=== PATIENT | male | born 1955 | race American Indian/Alaskan Native ===

== ENCOUNTER 2022-02-01 11:53 | Inpatient (IN) | payer MEDICARE ==
[2022-02-01] MEDS ORDERED: DEXTROSE 50% IN WATER (25GM) 50 ML SYRINGE IV ONE ×2 (13:00→16:59)
--- NOTE | 2022-02-01 13:51 | Emergency Department Report ---
ED General Adult HPI - General Chief complaint: Weakness Stated complaint: MISSED DIALYSIS X 4 WEEKS Time Seen by Provider: 02/01/22 12:36 Source: patient, EMS Mode of arrival: Stretcher Limitations: No Limitations - History of Present Illness Initial comments: Patient is a 66-year-old male with history of chronic kidney disease on dialysis presenting to ED with complaint of generalized weakness. States he is missed his past 4 weeks of dialysis. States he is treated poorly there and grew tired of going. - Related Data Allergies Allergy/AdvReac Type Severity Reaction Status Date / Time No Known Allergies Allergy Verified 02/01/22 12:02 ED Review of Systems ROS: Stated complaint: MISSED DIALYSIS X 4 WEEKS Other details as noted in HPI Constitutional: weakness. denies: chills, fever Respiratory: denies: cough, shortness of breath, wheezing Cardiovascular: denies: chest pain, palpitations Gastrointestinal: denies: abdominal pain, nausea, diarrhea Genitourinary: denies: urgency, dysuria Musculoskeletal: denies: back pain, joint swelling, arthralgia Skin: denies: rash, lesions Neurological: denies: headache, weakness, paresthesias Psychiatric: denies: anxiety, depression ED Physical Exam - General Limitations: No Limitations General appearance: alert, in no apparent distress - Head Head exam: Present: atraumatic, normocephalic - Neck Neck exam: Present: normal inspection. Absent: tenderness - Respiratory Respiratory exam: Present: normal lung sounds bilaterally. Absent: respiratory distress - Cardiovascular Cardiovascular Exam: Present: regular rate, normal rhythm, normal heart sounds - GI/Abdominal GI/Abdominal exam: Present: soft. Absent: distended, tenderness - Rectal Rectal exam: Present: deferred - Neurological Exam Neurological exam: Present: alert, oriented X3 - Psychiatric Psychiatric exam: Present: normal affect, normal mood - Skin Skin exam: Present: warm, dry, intact, normal color ED Course Vital Signs 02/01/22 02/01/22 02/01/22 11:59 12:12 12:31 Temperature 98 F Pulse Rate 104 H 95 H Respiratory 18 17 Rate Blood Pressure 163/100 Blood Pressure 188/107 [Left] O2 Sat by Pulse 95 91 98 Oximetry 02/01/22 02/01/22 02/01/22 13:01 13:31 14:01 Temperature Pulse Rate 91 H 94 H 89 Respiratory 13 13 17 Rate Blood Pressure 157/93 157/93 150/91 Blood Pressure [Left] O2 Sat by Pulse 97 94 98 Oximetry ED Medical Decision Making - Lab Data Result diagrams: 02/01/22 15:00 02/01/22 15:00 - EKG Data -: EKG Interpreted by Me EKG shows normal: sinus rhythm, axis, intervals, ST-T waves - EKG Data Interpretation: other (Low voltage) - Medical Decision Making Patient presenting to ED with complaint of generalized weakness and missing 4 weeks of dialysis. Serum potassium is 6.7. Patient also anemic with hemoglobin of 6.1. Suspect this is likely the cause of patient's generalized weakness. 2 units of blood ordered. Patient also given calcium gluconate, Kayexalate, insulin and dextrose. I discussed case with Dr. Metzger who will consult for dialysis. Will admit to hospitalist. Critical care attestation.: If time is entered above; I have spent that time in minutes in the direct care of this critically ill patient, excluding procedure time. ED Disposition Clinical Impression: Missed dialysis, Hyperkalemia, Symptomatic anemia Disposition: ADMITTED INPATIENT Is pt being admited?: Yes Condition: Stable
[2022-02-01 15:30] LABS: Basophils # (Auto) 0.1 K/mm3 (0.0-0.1); Basophils % (Auto) 1.2 % (0.0-1.8); Eosinophils # (Auto) 0.3 K/mm3 (0.0-0.4); Eosinophils % (Auto) 4.5 % (0.0-4.3); Hemoglobin 6.1 gm/dl (11.8-15.2); Lymphocytes # (Auto) 0.7 K/mm3 (1.2-5.4); Lymphocytes % (Auto) 12.2 % (13.4-35.0); Mean Corpuscular HGB Conc 33 % (32-34); Mean Corpuscular Volume 87 fl (84-94); Monocytes # (Auto) 0.5 K/mm3 (0.0-0.8); Monocytes % (Auto) 8.2 % (0.0-7.3); Platelet Count 150 K/mm3 (140-440); Red Blood Count 2.12 M/mm3 (3.65-5.03); Red Cell Distribution Width 14.4 % (13.2-15.2)
[2022-02-01 15:38] LABS: Hematocrit 18.4 % (35.5-45.6)
[2022-02-01] MEDS ORDERED: SODIUM CHLORIDE 0.9% 500 ML 500 ML IV ONE (15:38)
[2022-02-01 16:03] LABS: Alanine Aminotransferase 10 units/L (7-56); Albumin 3.6 g/dL (3.9-5); Hemolysis Index 9
[2022-02-01 16:07] LABS: Bilirubin,Direct < 0.2 mg/dL (0-0.2)
[2022-02-01 16:42] LABS: BUN/Creatinine Ratio 5; Blood Urea Nitrogen 151 mg/dL (9-20)
[2022-02-01] MEDS ORDERED: SODIUM POLYSTYRENE 15 GM/60 ML ORAL LIQD PO ONE (16:58)
[2022-02-01] MEDS ORDERED: CALCIUM GLUCONATE 1,000 MG in SODIUM CHLORIDE 0.9% 100 ML IV ONE (16:59)
[2022-02-01] MEDS ORDERED: INSULIN REGULAR, HUMAN 100 UNITS/1 ML IV ONE (16:59)
--- NOTE | 2022-02-01 17:01 | History and Physical Report ---
History of Present Illness Chief complaint: I need dialysis History of present illness: 66 YO Male with ESRD on HD, HTN, Noncompliance, Vascular Dementia, Cerebral Atherosclerosis presents to ED for evaluation. Patient reports "I need dialysis". Patient states that over the past 3 weeks he has experienced generalized weakness, decreased exercise tolerance. Patient also acknowledges multiple falls and loss of consciousness today. Patient was found by a personal friend during a well check and found the patient to have generalized weakness. EMS was notified and upon arrival the patient was found to be in distress and subsequent transported to [facility] for further care and evaluation of the aforementioned symptoms. The patient was seen and evaluated in the emergency department. All lab and imaging studies reviewed. Patient found to have symptomatic anemia complicated by loss of consciousness, end-stage renal disease in need of urgent dialysis, fluid overload, metabolic acidosis, and hyperkalemia. Patient mated to medical floor due to increased risk of worsening symptoms as well as for medical stabilization. Nephrology team consulted in ED for urgent dialysis. Patient denies fever, chills, chest pain, palpitation, productive cough, skin rash, recent contact, known exposure to COVID-19. No prior admission for review. No medication listed at time of admission for reconciliation. Advanced care planning conducted in ED. - G Past History Past Medical History: ESRD, hypertension, other (See HPI) Past Surgical History: Other (Dialysis access) Social history: . denies: smoking, alcohol abuse Family history: hypertension Medications and Allergies Allergies Allergy/AdvReac Type Severity Reaction Status Date / Time No Known Allergies Allergy Verified 02/01/22 12:02 Active Meds: Active Medications Calcium Gluconate 1,000 mg/ (Sodium Chloride) 110 mls @ 660 mls/hr IV ONCE ONE Stop: 02/01/22 17:08 Review of Systems Constitutional: weakness, no weight loss, no weight gain, no fever Ears, nose, mouth and throat: no ear pain, no nose pain, no nasal congestion Cardiovascular: no chest pain, no palpitations, no rapid/irregular heart beat Respiratory: no cough, no cough with sputum, no hemoptysis Gastrointestinal: no abdominal pain, no vomiting, no diarrhea, no constipation Genitourinary Male: no hematuria, no flank pain, no discharge, no urinary frequency, no urinary hesitancy Rectal: no pain, no incontinence, no bleeding Musculoskeletal: no neck pain, no shooting arm pain, no arm numbness/tingling, no low back pain, no shooting leg pain Integumentary: no rash, no pruritis, no sores, no jaundice Neurological: syncope, no transient paralysis, no paralysis, no parathesias Psychiatric: no anxiety, no memory loss, no change in sleep habits Endocrine: no cold intolerance, no polyphagia, no excessive thirst, no polydipsia Hematologic/Lymphatic: no easy bruising, no easy bleeding, no lymphadenopathy Allergic/Immunologic: no urticaria, no wheezing, no anaphylaxis Exam - Constitutional Vitals: Temp Pulse Resp BP Pulse Ox 98 F 89 17 150/91 98 02/01/22 11:59 02/01/22 14:01 02/01/22 14:01 02/01/22 14:01 02/01/22 14:01 General appearance: Present: mild distress - EENT Eyes: Present: PERRL (Conjunctival pallor) ENT: hearing intact, clear oral mucosa, other - Neck Neck: Present: supple, normal ROM - Respiratory Respiratory effort: normal Respiratory: bilateral: diminished - Cardiovascular Heart Sounds: Present: S1 & S2. Absent: rub, click - Extremities Extremities: pulses symmetrical, No edema Peripheral Pulses: within normal limits - Abdominal General gastrointestinal: Present: soft, non-tender, non-distended, normal bowel sounds Male genitourinary: Present: normal - Integumentary Integumentary: Present: warm, dry, pale, decreased turgor - Musculoskeletal Musculoskeletal: generalized weakness - Psychiatric Psychiatric: appropriate mood/affect, intact judgment & insight - Neurologic Neurologic: CNII-XII intact, moves all extremities Results - Labs CBC & Chem 7: 02/01/22 15:00 02/01/22 15:00 Labs: Abnormal lab results 02/01/22 02/01/22 02/01/22 Range/Units 12:58 15:00 15:00 RBC 2.12 L (3.65-5.03) M/mm3 Hgb 6.1 L (11.8-15.2) gm/dl Hct 18.4 L* (35.5-45.6) % Lymph % (Auto) 12.2 L (13.4-35.0) % [place] % (Auto) 8.2 H (0.0-7.3) % Eos % (Auto) 4.5 H (0.0-4.3) % Lymph # (Auto) 0.7 L (1.2-5.4) K/mm3 Seg Neutrophils % 73.9 H (40.0-70.0) % Sodium 136 L (137-145) mmol/L Potassium 6.7 H* (3.6-5.0) mmol/L Chloride 95.5 L (98-107) mmol/L Carbon Dioxide 15 L (22-30) mmol/L BUN 151 H (9-20) mg/dL Creatinine 29.3 H (0.8-1.3) mg/dL Glucose 55 L (75-100) mg/dL POC Glucose 56 L (70-105) mg/dL Calcium 7.0 L (8.4-10.2) mg/dL Total Protein 6.1 L (6.3-8.2) g/dL Albumin 3.6 L (3.9-5) g/dL Assessment and Plan - Patient Problems (1) End stage renal disease Current Visit: Yes Status: Acute Plan to address problem: Urgent dialysis per renal team, strict I's/O, monitor urine output every shift, avoid nephrotoxic agents, afterload reduction, (2) Fluid overload Current Visit: Yes Status: Acute Qualifiers: Hypervolemia type: unspecified Qualified Code(s): E87.70 - Fluid overload, unspecified Plan to address problem: Supportive care, urgent dialysis. Monitor fluid balance. (3) Hyperkalemia Current Visit: Yes Status: Acute Plan to address problem: Kayexalate, calcium gluconate, urgent dialysis. (4) Symptomatic anemia Current Visit: Yes Status: Acute Plan to address problem: Packed red blood cell transfusion, CBC, repeat CBC in a.m. (5) Metabolic acidosis Current Visit: Yes Status: Acute Plan to address problem: BMP, repeat BMP in a.m., urgent dialysis. (6) Hypertension Current Visit: Yes Status: Acute Qualifiers: Hypertension type: primary hypertension Qualified Code(s): I10 - Essential (primary) hypertension Plan to address problem: Monitor blood pressure every shift, continue medical management. Blood pressure check as per nursing care protocol. (7) DVT prophylaxis Current Visit: Yes Status: Acute Plan to address problem: SCD to bilateral lower extremities while in bed (8) Advance care planning Current Visit: Yes Status: Acute Plan to address problem: Disease education conducted, care plan discussed, diagnoses discussed, prognosis discussed, patient is full code. Patient knowledges understanding and agreement with care plan, +30 minutes. (9) Preventative health care Current Visit: Yes Status: Acute Plan to address problem: Patient counseled regarding compliance with dialysis, renal diet, medication compliance. Patient also instructed to follow-up with primary care physician for all age and risk factor appropriate screening test. +30 minutes.
[2022-02-01] MEDS ORDERED: ONDANSETRON 4 MG/2 ML INJ IV PRN (17:02)
[2022-02-01] MEDS ORDERED: ALBUTEROL 2.5 MG/3 ML NEBU IH PRN (17:02)
[2022-02-01] MEDS ORDERED: ACETAMINOPHEN 325 MG TAB PO PRN (17:02)
[2022-02-01] MEDS ORDERED: oxyCODONE /ACETAMINOPHEN 5-325MG TAB PO PRN (17:02)
[2022-02-01] MEDS ORDERED: HYDROmorphone 0.5 MG/0.5 ML INJ IV PRN (17:02)
[2022-02-01] MEDS ORDERED: CALC GLUCONATE 1GM/NS 100 ML 1 GM/100 ML BAG IV SCH (18:00)
[2022-02-01] MEDS ORDERED: SODIUM CHLORIDE 0.9% 100 ML IV PRN ×2 (18:09→19:11)
[2022-02-01] MEDS ORDERED: EPOETIN ALFA-EPBX 20,000 UNIT/1 ML VIAL SUB-Q PRN (18:09)
[2022-02-01] MEDS ORDERED: HEPARIN 10,000 UNITS/10 ML VIAL IV PRN (18:09)
--- NOTE | 2022-02-01 18:15 | Event Note ---
Date: 02/01/22 Patient with missed HD. Labs noted. Stat HD ordered. Spoke with Nursing abattoir supervisor about this patient.
[2022-02-01 21:59] LABS: Hepatitis B Surface Antigen Non-Reactive (Negative); Hepatitis C Virus Antibody Non-Reactive (NonReactive)
[2022-02-02] MEDS ORDERED: SODIUM CHLORIDE 0.9% 250ML 250 ML IV ONE (00:54)
[2022-02-02] MEDS ORDERED: hydrALAZINE 20 MG/1 ML INJ IV PRN (02:11)
[2022-02-02 07:23] VITALS: BP 148/85
[2022-02-02] MEDS ORDERED: METOPROLOL TARTRATE 25 MG TAB PO NR (08:29)
--- NOTE | 2022-02-02 08:35 | Progress Note ---
Assessment and Plan Assessment and plan: (1) End stage renal disease Current Visit: Yes Status: Acute Plan to address problem: Urgent dialysis per renal team, strict I's/O, monitor urine output every shift, avoid nephrotoxic agents, afterload reduction, (2) Fluid overload Current Visit: Yes Status: Acute Qualifiers: Hypervolemia type: unspecified Qualified Code(s): E87.70 - Fluid overload, unspecified Plan to address problem: Supportive care, urgent dialysis. Monitor fluid balance. (3) Hyperkalemia Current Visit: Yes Status: Acute Plan to address problem: Kayexalate, calcium gluconate, urgent dialysis. (4) Symptomatic anemia Current Visit: Yes Status: Acute Plan to address problem: Packed red blood cell transfusion, CBC, repeat CBC in a.m. (5) Metabolic acidosis Current Visit: Yes Status: Acute Plan to address problem: BMP, repeat BMP in a.m., urgent dialysis. (6) Hypertension Current Visit: Yes Status: Acute Qualifiers: Hypertension type: primary hypertension Qualified Code(s): I10 - Essential (primary) hypertension Plan to address problem: Monitor blood pressure every shift, continue medical management. Blood pressure check as per nursing care protocol. --Medical noncompliance ; (7) DVT prophylaxis Current Visit: Yes Status: Acute Plan to address problem: SCD to bilateral lower extremities while in bed (8) Advance care planning Current Visit: Yes Status: Acute Plan to address problem: Disease education conducted, care plan discussed, diagnoses discussed, prognosis discussed, patient is full code. Patient knowledges understanding and agreement with care plan, +30 minutes. (9) Preventative health care Current Visit: Yes Status: Acute Plan to address problem: Patient counseled regarding compliance with dialysis, renal diet, medication compliance. Patient also instructed to follow-up with primary care physician for all age and risk factor appropriate screening test. +30 minutes. Hospitalist Physical - Constitutional Vitals: Temp Pulse Resp BP Pulse Ox 97.9 F 98 H 18 148/85 98 02/02/22 07:00 02/02/22 07:00 02/02/22 07:00 02/02/22 07:00 02/02/22 07:00 General appearance: Present: mild distress Results - Labs CBC & Chem 7: 02/01/22 15:00 02/01/22 15:00 Labs: Laboratory Last Values WBC 6.0 K/mm3 (4.5-11.0) 02/01/22 15:00 RBC 2.12 M/mm3 (3.65-5.03) L 02/01/22 15:00 Hgb 6.1 gm/dl (11.8-15.2) L 02/01/22 15:00 Hct 18.4 % (35.5-45.6) L* 02/01/22 15:00 MCV 87 fl (84-94) 02/01/22 15:00 MCH 29 pg (28-32) 02/01/22 15:00 MCHC 33 % (32-34) 02/01/22 15:00 RDW 14.4 % (13.2-15.2) 02/01/22 15:00 Plt Count 150 K/mm3 (140-440) 02/01/22 15:00 Lymph % (Auto) 12.2 % (13.4-35.0) L 02/01/22 15:00 [place] % (Auto) 8.2 % (0.0-7.3) H 02/01/22 15:00 Eos % (Auto) 4.5 % (0.0-4.3) H 02/01/22 15:00 Baso % (Auto) 1.2 % (0.0-1.8) 02/01/22 15:00 Lymph # (Auto) 0.7 K/mm3 (1.2-5.4) L 02/01/22 15:00 [place] # (Auto) 0.5 K/mm3 (0.0-0.8) 02/01/22 15:00 Eos # (Auto) 0.3 K/mm3 (0.0-0.4) 02/01/22 15:00 Baso # (Auto) 0.1 K/mm3 (0.0-0.1) 02/01/22 15:00 Seg Neutrophils % 73.9 % (40.0-70.0) H 02/01/22 15:00 Seg Neutrophils # 4.4 K/mm3 (1.8-7.7) 02/01/22 15:00 Sodium 136 mmol/L (137-145) L 02/01/22 15:00 Potassium 6.7 mmol/L (3.6-5.0) H* 02/01/22 15:00 Chloride 95.5 mmol/L (98-107) L 02/01/22 15:00 Carbon Dioxide 15 mmol/L (22-30) L 02/01/22 15:00 Anion Gap 32 mmol/L 02/01/22 15:00 BUN 151 mg/dL (9-20) H 02/01/22 15:00 Creatinine 29.3 mg/dL (0.8-1.3) H 02/01/22 15:00 Estimated GFR 2 ml/min 02/01/22 15:00 BUN/Creatinine Ratio 5 % 02/01/22 15:00 Glucose 55 mg/dL (75-100) L 02/01/22 15:00 POC Glucose 102 mg/dL (70-105) 02/01/22 18:08 Calcium 7.0 mg/dL (8.4-10.2) L 02/01/22 15:00 Total Bilirubin 0.30 mg/dL (0.1-1.2) 02/01/22 15:00 Direct Bilirubin < 0.2 mg/dL (0-0.2) 02/01/22 15:00 Indirect Bilirubin 0.1 mg/dL 02/01/22 15:00 AST 16 units/L (5-40) 02/01/22 15:00 ALT 10 units/L (7-56) 02/01/22 15:00 Alkaline Phosphatase 56 units/L (35-129) 02/01/22 15:00 Total Protein 6.1 g/dL (6.3-8.2) L 02/01/22 15:00 Albumin 3.6 g/dL (3.9-5) L 02/01/22 15:00 Albumin/Globulin Ratio 1.4 % 02/01/22 15:00 Hepatitis A IgM Ab Non-reactive (NonReactive) 02/01/22 21:00 Hep Bs Antigen Non-reactive (Negative) 02/01/22 21:00 Hep B Core IgM Ab Non-reactive (NonReactive) 02/01/22 21:00 Hepatitis C Antibody Non-reactive (NonReactive) 02/01/22 21:00 Blood Type A POSITIVE 02/01/22 16:00 Antibody Screen Negative 02/01/22 16:00 Crossmatch See Detail 02/01/22 16:00 Active Medications - Current Medications Current Medications: Generic Name Dose Route Start Last Admin Trade Name Freq PRN Reason Stop Dose Admin Acetaminophen 650 mg 02/01/22 17:02 Acetaminophen 325 Mg Tab PO Q4H PRN Pain MILD(1-3)/Fever >100.5/GILL Albuterol 2.5 mg 02/01/22 17:02 Albuterol 2.5 Mg/3 Ml Nebu IH Q4HRT PRN Shortness Of Breath Epoetin Matheus-epbx 20,000 unit 02/01/22 18:09 02/01/22 22:35 Epoetin Matheus-Epbx 20,000 Unit/1 Ml Vial SUB-Q 20,000 unit SHAHANA PRN Administration hemodialysis Heparin Sodium (Porcine) 3,000 unit 02/01/22 18:09 02/01/22 20:12 Heparin 10,000 Units/10 Ml Vial IV 3,000 unit SHAHANA PRN Administration hemodialysis Hydralazine HCl 10 mg 02/02/22 02:11 02/02/22 02:33 Hydralazine 20 Mg/1 Ml Inj IV 10 mg Q4H PRN Administration Hypertension Hydromorphone HCl 0.5 mg 02/01/22 17:02 02/02/22 05:00 Hydromorphone 0.5 Mg/0.5 Ml Inj IV 0.5 mg Q23H PRN Administration Pain , Severe (7-10) CALC GLUCONATE 1GM/NS 100 ML 1 gm in 100 mls @ 200 mls/hr 02/01/22 18:00 Calcium Gluonate/Ns 1,000mg/100ml IV ONCE ОЛЬГА Sodium Chloride 100 mls @ 999 mls/hr 02/01/22 19:11 Nacl 0.9% IV SHAHANA PRN Hypotension Metoprolol Tartrate 12.5 mg 02/02/22 08:29 Metoprolol Tartrate 25 Mg Tab PO 02/02/22 08:30 ONCE ONE Ondansetron HCl 4 mg 02/01/22 17:02 Ondansetron 4 Mg/2 Ml Inj IV Q8H PRN Nausea And Vomiting Oxycodone/Acetaminophen 1 tab 02/01/22 17:02 Oxycodone /Acetaminophen 5-325mg Tab PO Q16H PRN Pain, Moderate (4-6) Sodium Chloride 10 ml 02/01/22 22:00 02/01/22 23:45 Sodium Chloride 0.9% 10 Ml Flush Syringe IV Not Given BID ОЛЬГА Sodium Chloride 10 ml 02/01/22 17:02 Sodium Chloride 0.9% 10 Ml Flush Syringe IV PRN PRN LINE FLUSH
--- NOTE | 2022-02-02 10:03 | Consultation ---
History of Present Illness - Reason for Consult Consult date: 02/02/22 end stage renal disease, hyperkalemia - History of Present Illness The patient is a 66 YO male with history of HTN, Anemia and ESRD on HD who [facility] with generalized weakness and decreased exercise tolerance. Patient also acknowledged multiple falls and loss of consciousness. Patient was found by a personal friend during a well check. Patient is a poor historian and not cooperative. Not sure when was his last dialysis and where he gets dialysis. All labs and imaging studies reviewed. Nephrology consulted for ESRD management. Past History Past Medical History: anemia, dialysis, ESRD, hypertension, other (See HPI) Past Surgical History: Other (Dialysis access) Social history: . denies: smoking, alcohol abuse Family history: hypertension Medications and Allergies Allergies Allergy/AdvReac Type Severity Reaction Status Date / Time No Known Allergies Allergy Verified 02/01/22 12:02 Active Meds: Active Medications Acetaminophen (Acetaminophen 325 Mg Tab) 650 mg PO Q4H PRN PRN Reason: Pain MILD(1-3)/Fever >100.5/GILL Albuterol (Albuterol 2.5 Mg/3 Ml Nebu) 2.5 mg IH Q4HRT PRN PRN Reason: Shortness Of Breath Epoetin Matheus-epbx (Epoetin Matheus-Epbx 20,000 Unit/1 Ml Vial) 20,000 unit SUB-Q SHAHANA PRN PRN Reason: hemodialysis Last Admin: 02/01/22 22:35 Dose: 20,000 unit Heparin Sodium (Porcine) (Heparin 10,000 Units/10 Ml Vial) 3,000 unit IV SHAHANA PRN PRN Reason: hemodialysis Last Admin: 02/01/22 20:12 Dose: 3,000 unit Hydralazine HCl (Hydralazine 20 Mg/1 Ml Inj) 10 mg IV Q4H PRN PRN Reason: Hypertension Last Admin: 02/02/22 02:33 Dose: 10 mg Hydromorphone HCl (Hydromorphone 0.5 Mg/0.5 Ml Inj) 0.5 mg IV Q23H PRN PRN Reason: Pain , Severe (7-10) Last Admin: 02/02/22 05:00 Dose: 0.5 mg CALC GLUCONATE 1GM/NS 100 ML (Calcium Gluonate/Ns 1,000mg/100ml) 1 gm in 100 mls @ 200 mls/hr IV ONCE ОЛЬГА Sodium Chloride (Nacl 0.9%) 100 mls @ 999 mls/hr IV SHAHANA PRN PRN Reason: Hypotension Metoprolol Tartrate (Metoprolol Tartrate 25 Mg Tab) 12.5 mg PO ONCE NR Stop: 02/02/22 12:00 Last Admin: 02/02/22 09:00 Dose: 12.5 mg Ondansetron HCl (Ondansetron 4 Mg/2 Ml Inj) 4 mg IV Q8H PRN PRN Reason: Nausea And Vomiting Oxycodone/Acetaminophen (Oxycodone /Acetaminophen 5-325mg Tab) 1 tab PO Q16H PRN PRN Reason: Pain, Moderate (4-6) Sodium Chloride (Sodium Chloride 0.9% 10 Ml Flush Syringe) 10 ml IV BID ОЛЬГА Last Admin: 02/02/22 09:01 Dose: 10 ml Sodium Chloride (Sodium Chloride 0.9% 10 Ml Flush Syringe) 10 ml IV PRN PRN PRN Reason: LINE FLUSH Review of Systems ROS unobtainable: due to mental status (not cooperative) Exam - Vital Signs Vital signs: Vital Signs Temp Pulse Resp BP Pulse Ox 98 F 104 H 18 188/107 95 02/01/22 11:59 02/01/22 11:59 02/01/22 11:59 02/01/22 11:59 02/01/22 11:59 Results - Lab Results 02/01/22 15:00 02/01/22 15:00 Most recent lab results Calcium 7.0 mg/dL (8.4-10.2) L 02/01/22 15:00 Assessment and Plan 1. ESRD: Patient is on maintenance hemodialysis. Unsure about his last outpatient HD. Hemodialysis: 02/01. Refused HD today. 2. FEN: Hyperkalemia, s/p urgent HD, monitor. Anion-gap metabolic acidosis, s/p urgent HD, monitor. Counseled to limit salt and fluid intake. Strict renal diet. Binders as prescribed. Monitor lytes and volume status. 3. Uncontrolled HTN: Volume control thru HD. Adjust meds as needed. Monitor BP. Advised to limit salt and fluid intake. 4. Symptomatic Anemia, POA: Packed red blood cell transfusion. Epogen with HD as needed. Monitor. 5. Medical non-compliance: Counseled. Subjective: Patient was seen and examined at the bedside. General Appearance: General appearance: well-developed, appears stated age, no distress, not cooperative HEENT: ATNC, hearing intact Neck: trachea midline Respiratory: ctab Heart: regular, S1S2, no murmur Abdomen: soft, NT, BS heard Integumentary: no obvious rash Neurologic: alert, conversing, able to move extremities Ext: no obvious edema noted Hemodialysis access: L IJ tunnel catheter
--- NOTE | 2022-02-02 13:52 | Electrocardiograph Report ---
[facility] Test Date: 2022-02-02 Test Time: 09:15:29 Pat Name: KRISTY DUEÑAS Department: Room: A367 1 Gender: M Manager Front Office: ADAN : 1955 Requested By: JEFRY SU Order Number: [id number] Reading MD: Ana Luisa Vernon Measurements Intervals [place] Rate: 119 P: 42 NE: 156 QRS: 69 QRSD: 82 T: QT: 328 QTc: 462 Interpretive Statements Sinus tachycardia with frequent PACs, and occasional PVCs Low voltage, extremity leads Nonspecific T abnormalities, lateral leads No previous ECG available for comparison Electronically Signed On 02-02-2022 13:52:28 EDT by Ana Luisa Vernon
--- NOTE | 2022-02-02 20:39 | Discharge Summary ---
Providers - Providers Date of Admission: 02/01/22 17:02 Date of discharge: 02/02/22 Attending physician: JEFRY SU 02/01/22 17:01 Consult to Physician [CONS] Stat Comment: Consulting Provider: JERRELL DELACRUZ Physician Instructions: Reason For Exam: Emergent dialysis Primary care physician: SHE DALAL Hospitalization Reason for admission: Requesting hemodialysis/noncompliant with dialysis for 3 weeks Condition: Good Procedures: Hemodialysis Hospital course: 66 YO Male with ESRD on HD, HTN, Noncompliance, Vascular Dementia, Cerebral Atherosclerosis presents to ED for evaluation. Patient reports "I need dialysis". Patient states that over the past 3 weeks he has experienced generalized weakness, decreased exercise tolerance. Patient also acknowledges multiple falls and loss of consciousness today. Patient was found by a personal friend during a well check and found the patient to have generalized weakness. EMS was notified and upon arrival the patient was found to be in distress and subsequent transported to [facility] for further care and evaluation of the aforementioned symptoms. The patient was seen and evaluated in the emergency department. All lab and imaging studies reviewed. Patient found to have symptomatic anemia complicated by loss of consciousness, end-stage renal disease in need of urgent dialysis, fluid overload, metabolic acidosis, and hyperkalemia. Patient mated to medical floor due to increased risk of worsening symptoms as well as for medical stabilization. Nephrology team consulted in In the emergency room, patient received stat dialysis and was transferred to the floor. Today in the field patient states he feels better and wanted to leave the hospital, all the healthcare providers have counseled the patient individually the risks and consequences and complications of leaving AGAINST MEDICAL ADVICE, he verbalized understanding and left AMA Final diagnosis: (1) End stage renal diseas (2) Fluid overloade (3) Hyperkalemia (4) Symptomatic anemia (5) Metabolic acidosis (6) Hypertension (7) DVT prophylaxis {8) Noncompliance with hemodialysis Patient left AMA Disposition: LEFT AGAINST MEDICAL ADVICE Final Discharge Diagnosis (Prints w/discharge instructions): End-stage renal disease on hemodialysis. Fluid overload. Hyperkalemia. Symptomatic anemia. Metabolic acidosis. Hyper tension. DVT prophylaxis. Noncompliance with hemodialysis Time spent for discharge: 35 min Core Measure Documentation - Palliative Care Palliative Care/ Comfort Measures: Not Applicable - Core Measures Any of the following diagnoses?: none Exam - Constitutional Vitals: Temp Pulse Resp BP Pulse Ox 97.9 F 98 H 18 148/85 99 02/02/22 07:00 02/02/22 07:00 02/02/22 07:00 02/02/22 07:00 02/02/22 08:44 General appearance: Present: no acute distress, well-nourished - EENT Eyes: Present: PERRL, EOM intact - Neck Neck: Present: supple, normal ROM - Respiratory Respiratory effort: normal Respiratory: bilateral: diminished, negative: rales, rhonchi, wheezing - Cardiovascular Rhythm: regular Heart Sounds: Present: S1 & S2 - Extremities Extremities: no ischemia Extremity abnormal: edema - Abdominal General gastrointestinal: Present: soft, non-tender, non-distended, normal bowel sounds - Integumentary Integumentary: Present: clear, warm - Musculoskeletal Musculoskeletal: strength equal bilaterally, generalized weakness - Psychiatric Psychiatric: appropriate mood/affect, cooperative - Neurologic Neurologic: moves all extremities Plan Additional Instructions: Patient left AMA Follow up with: SHE DALAL MD [Primary Care Provider] - 3-5 Days Forms: AMA Form
--- NOTE | 2022-02-03 14:05 | Electrocardiograph Report ---
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
== END 2022-02-02 11:00 | disposition left against medical advice (07) | DRG 640 ==
LOC: ED 11:53 → 3A 17:02
PROVIDERS: ADMIT Internal Medicine; ATTEND Internal Medicine
PROC: 30233N1 Transfusion of Nonautologous Red Blood Cells into Peripheral Vein, Percutaneous Approach (ICD-10-PCS; principal; 2022-02-01)
PROC: 5A1D70Z Performance of Urinary Filtration, Intermittent, Less than 6 Hours Per Day (ICD-10-PCS; 2022-02-01)
DX: E87.5 Hyperkalemia (principal); N18.6 End stage renal disease; I12.0 Hypertensive chronic kidney disease with stage 5 chronic kidney disease or end stage renal disease; E87.2 Acidosis; D64.9 Anemia, unspecified; E87.70 Fluid overload, unspecified; Z91.19 Patient's noncompliance with other medical treatment and regimen; F01.50 Vascular dementia, unspecified severity, without behavioral disturbance, psychotic disturbance, mood disturbance, and anxiety; Z53.29 Procedure and treatment not carried out because of patient's decision for other reasons; I67.2 Cerebral atherosclerosis; Z82.49 Family history of ischemic heart disease and other diseases of the circulatory system
CPT/HCPCS: 36415; 80048; 80074; 80076; 82962; 85025; 86850; 86900; 86901; 86920; 93005; G0378; J3490; Q9967; J0360; J0610; J0885; J1170; J1644; J1815; J7050; P9016

== ENCOUNTER 2022-03-24 12:53 | Inpatient (IN) | payer MEDICARE ==
[2022-03-24 14:28] LABS: Basophils # (Auto) 0.1 K/mm3 (0.0-0.1); Basophils % (Auto) 1.4 % (0.0-1.8); Eosinophils # (Auto) 0.2 K/mm3 (0.0-0.4); Eosinophils % (Auto) 2.5 % (0.0-4.3); Hematocrit 24.8 % (35.5-45.6); Hemoglobin 7.8 gm/dl (11.8-15.2); Lymphocytes # (Auto) 1.1 K/mm3 (1.2-5.4); Lymphocytes % (Auto) 16.8 % (13.4-35.0); Mean Corpuscular HGB Conc 32 % (32-34); Mean Corpuscular Volume 93 fl (84-94); Monocytes # (Auto) 0.3 K/mm3 (0.0-0.8); Monocytes % (Auto) 5.4 % (0.0-7.3); Platelet Count 203 K/mm3 (140-440); Red Blood Count 2.67 M/mm3 (3.65-5.03); Red Cell Distribution Width 18.5 % (13.2-15.2)
[2022-03-24 14:50] LABS: Alanine Aminotransferase < 5 units/L (7-56); Albumin 4.5 g/dL (3.9-5); Calcium 8.5 mg/dL (8.4-10.2); Hemolysis Index 1
[2022-03-24 15:08] LABS: BUN/Creatinine Ratio 7; Blood Urea Nitrogen 124 mg/dL (9-20)
[2022-03-24] MEDS ORDERED: INSULIN REGULAR, HUMAN 100 UNITS/1 ML IV ONE (16:10)
[2022-03-24] MEDS ORDERED: ALPRAZolam 1 MG TAB PO ONE (16:10)
[2022-03-24] MEDS ORDERED: DEXTROSE 50% IN WATER (25GM) 50 ML VIAL IV NR ×2 (16:10→17:08)
[2022-03-24] MEDS ORDERED: CALCIUM GLUCONATE 1,000 MG in SODIUM CHLORIDE 0.9% 100 ML IV ONE (16:11)
[2022-03-24] MEDS ORDERED: ALBUTEROL 2.5 MG/3 ML NEBU IH ONE (16:11)
[2022-03-24] MEDS ORDERED: SODIUM BICARB 8.4% 50 MEQ/50 ML SYRINGE IV ONE (16:11)
[2022-03-24] MEDS ORDERED: MORPHINE 2 MG/1 ML INJ IV PRN (16:18)
[2022-03-24] MEDS ORDERED: ONDANSETRON 4 MG/2 ML INJ IV PRN ×2 (16:18→21:23)
[2022-03-24] MEDS ORDERED: ACETAMINOPHEN 325 MG TAB PO PRN ×2 (16:18→21:23)
--- NOTE | 2022-03-24 16:18 | Emergency Department Report ---
ED General Adult HPI - General Chief complaint: Recheck/Abnormal Lab/Rx Stated complaint: MISSED DIALYSIS [id number] Time Seen by Provider: 03/24/22 15:21 Source: patient, EMS Mode of arrival: Stretcher Limitations: No Limitations - History of Present Illness Initial comments: 66 YO Male with ESRD on HD, HTN, Noncompliance, Vascular Dementia, Cerebral Ath erosclerosis presents to the hospital with complaints of face edema x1 day. Patient is chronically noncompliant with dialysis. He states his last dialysis was 2 to 3 weeks ago. He no longer has a dialysis center because he was fired from the practice for noncompliance. Patient denies chest pain, leg edema, or shortness of breath. Patient expresses that he is upset that he was transitioned from peritoneal dialysis to hemodialysis because hemodialysis is permanent and he does not like going 3 times a week. Previous parts salvager: Dr. Thomas Severity scale (0 -10): 0 - Related Data Allergies Allergy/AdvReac Type Severity Reaction Status Date / Time No Known Allergies Allergy Verified 02/01/22 12:02 ED Review of Systems ROS: Stated complaint: MISSED DIALYSIS [id number] Other details as noted in HPI Comment: All other systems reviewed and negative ED Past Medical Hx - Past Medical History Hx Hypertension: Yes Hx Dementia: Yes - Social History Smoking Status: Never Smoker ED Physical Exam - General Limitations: No Limitations - Other Other exam information: General: No acute distress Head: Atraumatic Eyes: normal appearance ENT: Moist mucous membranes Neck: Normal appearance, no midline tenderness Chest: Clear to auscultation bilaterally, left chest wall dialysis catheter CV: Regular rate and rhythm Abdomen: Soft, normal bowel sounds, nontender, nondistended, no rebound or guarding Back: Normal inspection Extremity: Left hand/wrist lump noted from previous IV placement. No tenderness or warmth Neuro: Alert O x 3, no facial asymmetry, speech clear, no gross motor sensory deficit Psych: Appropriate behavior Skin: No rash ED Course Vital Signs 03/24/22 12:54 Temperature 98.2 F Pulse Rate 104 H Respiratory 18 Rate Blood Pressure 178/106 [Left] O2 Sat by Pulse 99 Oximetry - Consultations Consultation #1: 03/24/22 16:17 Dr Dean aboriginal home school liaison officer, will manage dialysis needs. Patient needed to be transition from peritoneal dialysis to hemodialysis secondary to bowel obstruction and intra-abdominal hemorrhage. Patient's is thought to have some memory problems which is consistent with past medical history of vascular dementia. Patient was fired from practice due to repeated noncompliance as long as 30 days between dialysis sessions. ED Medical Decision Making - Lab Data Result diagrams: 03/24/22 14:20 03/24/22 14:20 Lab Results 03/24/22 03/24/22 Range/Units 14:20 14:20 WBC 6.4 (4.5-11.0) K/mm3 RBC 2.67 L (3.65-5.03) M/mm3 Hgb 7.8 L (11.8-15.2) gm/dl Hct 24.8 L (35.5-45.6) % MCV 93 (84-94) fl MCH 29 (28-32) pg MCHC 32 (32-34) % RDW 18.5 H (13.2-15.2) % Plt Count 203 (140-440) K/mm3 Lymph % (Auto) 16.8 (13.4-35.0) % [place] % (Auto) 5.4 (0.0-7.3) % Eos % (Auto) 2.5 (0.0-4.3) % Baso % (Auto) 1.4 (0.0-1.8) % Lymph # (Auto) 1.1 L (1.2-5.4) K/mm3 [place]kin # (Auto) 0.3 (0.0-0.8) K/mm3 Eos # (Auto) 0.2 (0.0-0.4) K/mm3 Baso # (Auto) 0.1 (0.0-0.1) K/mm3 Seg Neutrophils % 73.9 H (40.0-70.0) % Seg Neutrophils # 4.8 (1.8-7.7) K/mm3 Sodium 141 (137-145) mmol/L Potassium 5.8 H (3.6-5.0) mmol/L Chloride 103.1 (98-107) mmol/L Carbon Dioxide 20 L (22-30) mmol/L Anion Gap 24 mmol/L BUN 124 H (9-20) mg/dL Creatinine 18.8 H (0.8-1.3) mg/dL Estimated GFR 3 ml/min BUN/Creatinine Ratio 7 % Glucose 90 (75-100) mg/dL Calcium 8.5 (8.4-10.2) mg/dL Total Bilirubin 0.30 (0.1-1.2) mg/dL AST 18 (5-40) units/L ALT < 5 L (7-56) units/L Alkaline Phosphatase 45 (35-129) units/L Total Protein 6.7 (6.3-8.2) g/dL Albumin 4.5 (3.9-5) g/dL Albumin/Globulin Ratio 2.0 % - Medical Decision Making 67-year-old male presents to the hospital needing dialysis secondary to hyperkalemia and uremia. Patient has been noncompliant with dialysis session for least 2 to 3 weeks and does not currently have a dialysis center. He denies respiratory distress but does have facial edema consistent with volume overload. Case discussed with parts salvager on-call Dr. Thomas who will place dialysis orders during admission. Patient treated for hyperkalemia with br onchodilators, calcium, insulin, glucose, and sodium bicarb Patient reports is of anxiety with as needed Xanax use at home. He is requesting a dose at this time. Xanax 1 mg ordered Critical Care Time: No Critical care attestation.: If time is entered above; I have spent that time in minutes in the direct care of this critically ill patient, excluding procedure time. ED Disposition Clinical Impression: ESRD needing dialysis, Noncompliance with renal dialysis, Edema, Chronic hypertension, Hyperkalemia Disposition: ADMITTED INPATIENT Is pt being admited?: Yes Condition: Stable Instructions: Hypertension (ED) Referrals: PRIMARY CARE, [Primary Care Provider] - 3-5 Days Time of Disposition: 16:17 (DR Kulkarni/hosp)
--- NOTE | 2022-03-24 16:56 | Consultation ---
History of Present Illness - Reason for Consult Consult date: 03/24/22 end stage renal disease, hypernatremia, accelerated hypertension Requesting physician: CARLTON [place] - History of Present Illness 66 YO Male with ESRD on HD, HTN, Noncompliance, Vascular Dementia, Cerebral Atherosclerosis presents to the hospital with complaints of face edema x1 day. Patient is chronically noncompliant with dialysis. He states his last dialysis was 2 to 3 weeks ago. He no longer has a dialysis center because he was fired from the practice for noncompliance. Patient denies chest pain, leg edema, or shortness of breath. Patient expresses that he is upset that he was transitioned from peritoneal dialysis to hemodialysis because hemodialysis is permanent and he does not like going 3 times a week. ROS: Stated complaint: MISSED DIALYSIS [id number] Other details as noted in HPI Comment: All other systems reviewed and negative - Past Medical History Hx Hypertension: Yes Hx Dementia: Yes - Social History Smoking Status: Never Smoker Medications and Allergies Allergies Allergy/AdvReac Type Severity Reaction Status Date / Time No Known Allergies Allergy Verified 02/01/22 12:02 Active Meds: Active Medications Acetaminophen (Acetaminophen 325 Mg Tab) 650 mg PO Q4H PRN PRN Reason: Pain MILD(1-3)/Fever >100.5/GILL Albumin Human (Albumin Human 25% (25 Gm/100 Ml) Inj) 25 gm IV SHAHANA PRN PRN Reason: Hypotension Dextrose (Dextrose 50% In Water (25gm) 50 Ml Vial) 25 gm IV ONCE NR; Protocol Stop: 03/24/22 17:30 Epoetin Matheus-epbx (Epoetin Matheus-Epbx 10,000 Unit/1 Ml Vial) 10,000 unit IV SHAHANA PRN PRN Reason: hemodialysis CALC GLUCONATE 1GM/NS 100 ML (Calcium Gluonate/Ns 1,000mg/100ml) 1 gm in 100 mls @ 200 mls/hr IV ONCE ONE Stop: 03/24/22 17:29 Sodium Chloride (Nacl 0.9%) 100 mls @ 999 mls/hr IV SHAHANA PRN PRN Reason: Hypotension Morphine Sulfate (Morphine 2 Mg/1 Ml Inj) 2 mg IV Q4H PRN PRN Reason: Pain, Moderate (4-6) Ondansetron HCl (Ondansetron 4 Mg/2 Ml Inj) 4 mg IV Q8H PRN PRN Reason: Nausea And Vomiting Sodium Bicarbonate (Sodium Bicarb 8.4% 50 Meq/50 Ml Syringe) 50 meq IV ONCE NR Stop: 03/24/22 23:00 Sodium Chloride (Sodium Chloride 0.9% 10 Ml Flush Syringe) 10 ml IV BID ОЛЬГА Sodium Chloride (Sodium Chloride 0.9% 10 Ml Flush Syringe) 10 ml IV PRN PRN PRN Reason: LINE FLUSH Exam - Vital Signs Vital signs: Vital Signs Temp Pulse Resp BP Pulse Ox 98.2 F 104 H 18 178/106 99 03/24/22 12:54 03/24/22 12:54 03/24/22 12:54 03/24/22 12:54 03/24/22 12:54 - Physical Exam Narrative exam: General: No acute distress Head: Atraumatic Eyes: normal appearance ENT: Moist mucous membranes Neck: Normal appearance, no midline tenderness Chest: Clear to auscultation bilaterally, left chest wall dialysis catheter CV: Regular rate and rhythm Abdomen: Soft, normal bowel sounds, nontender, nondistended, no rebound or guarding Back: Normal inspection Extremity: Left hand/wrist lump noted from previous IV placement. No tenderness or warmth Neuro: Alert O x 3, no facial asymmetry, speech clear, no gross motor sensory deficit Psych: Appropriate behavior Skin: No rash Results - Lab Results 03/24/22 14:20 03/24/22 14:20 Most recent lab results Calcium 8.5 mg/dL (8.4-10.2) 03/24/22 14:20 Assessment and Plan Impression: * ESRD * Uremia * hyperkalemia * metabolic acidosis * HTN Plan * HD today for solute and volume control * epogen with hd * strict i/os * renal diet * stress compliance with medical care, this has been his issue when trying to find a dialysis unit * ok to dc home after hd from renal standpoint
[2022-03-24] MEDS ORDERED: CALC GLUCONATE 1GM/NS 100 ML 1 GM/100 ML BAG IV ONE (17:00)
[2022-03-24] MEDS ORDERED: SODIUM BICARB 8.4% 50 MEQ/50 ML SYRINGE IV NR (17:00)
[2022-03-24] MEDS ORDERED: ALBUMIN HUMAN 25% (25 GM/100 ML) INJ IV PRN (17:30)
[2022-03-24] MEDS ORDERED: EPOETIN ALFA-EPBX 10,000 UNIT/1 ML VIAL IV PRN (17:30)
[2022-03-24 17:56] LABS: Hepatitis B Surface Antigen Non-Reactive (Negative); Hepatitis C Virus Antibody Non-Reactive (NonReactive)
[2022-03-24] MEDS ORDERED: SODIUM CHLORIDE 0.9% 100 ML IV PRN (18:00)
--- NOTE | 2022-03-24 21:22 | History and Physical Report ---
History of Present Illness Date of examination: 03/24/22 Date of admission: 03/24/22 16:18 Chief complaint: Increasing shortness of breath for 1 week History of present illness: 66 YO Male with ESRD on HD, HTN, Noncompliance, Vascular Dementia, Cerebral Atherosclerosis presents to the hospital with complaints of edema x1 day. Patient is chronically noncompliant with dialysis. He states his last dialysis was 2 to 3 weeks ago. He no longer has a dialysis center because he was fired from the practice for noncompliance. Patient denies chest pain, leg edema, or shortness of breath. Patient expresses that he is upset that he was transitioned from peritoneal dialysis to hemodialysis because hemodialysis is permanent and he does not like going 3 times a week. Patient very short of breath and shortness of breath on minimal exertion. Patient denies distinct symptoms. In the emergency room patient is obviously dyspneic on on 50% Ventimask. No chest pain. - Past Medical History Hx Hypertension: Yes Hx Dementia: Yes - Social History Smoking Status: Never Smoker Surgical history --AV fistula - family history --Htn Review of Systems ROS: Stated complaint: MISSED DIALYSIS [id number] Other details as noted in HPI Comment: All other systems reviewed and negative Medications and Allergies Allergies Allergy/AdvReac Type Severity Reaction Status Date / Time No Known Allergies Allergy Verified 02/01/22 12:02 Active Meds: Active Medications Acetaminophen (Acetaminophen 325 Mg Tab) 650 mg PO Q4H PRN PRN Reason: Pain MILD(1-3)/Fever >100.5/GILL Albumin Human (Albumin Human 25% (25 Gm/100 Ml) Inj) 25 gm IV SHAHANA PRN PRN Reason: Hypotension Dextrose (Dextrose 50% In Water (25gm) 50 Ml Vial) 25 gm IV ONCE NR; Protocol Stop: 03/24/22 23:00 Last Admin: 03/24/22 17:38 Dose: 25 gm Epoetin Matheus-epbx (Epoetin Matheus-Epbx 10,000 Unit/1 Ml Vial) 10,000 unit IV SHAHANA PRN PRN Reason: hemodialysis Last Admin: 03/24/22 20:20 Dose: 10,000 unit Sodium Chloride (Nacl 0.9%) 100 mls @ 999 mls/hr IV SHAHANA PRN PRN Reason: Hypotension Morphine Sulfate (Morphine 2 Mg/1 Ml Inj) 2 mg IV Q4H PRN PRN Reason: Pain, Moderate (4-6) Ondansetron HCl (Ondansetron 4 Mg/2 Ml Inj) 4 mg IV Q8H PRN PRN Reason: Nausea And Vomiting Sodium Bicarbonate (Sodium Bicarb 8.4% 50 Meq/50 Ml Syringe) 50 meq IV ONCE NR Stop: 03/24/22 23:00 Sodium Chloride (Sodium Chloride 0.9% 10 Ml Flush Syringe) 10 ml IV BID ОЛЬГА Sodium Chloride (Sodium Chloride 0.9% 10 Ml Flush Syringe) 10 ml IV PRN PRN PRN Reason: LINE FLUSH Exam - Constitutional Vitals: Temp Pulse Resp BP Pulse Ox 98.9 F 108 H 18 138/85 99 03/24/22 21:17 03/24/22 21:17 03/24/22 21:17 03/24/22 21:17 03/24/22 21:17 General appearance: Present: no acute distress, well-nourished - EENT Eyes: Present: PERRL ENT: hearing intact, clear oral mucosa - Neck Neck: Present: supple, normal ROM - Respiratory Respiratory effort: normal Respiratory: bilateral: CTA - Cardiovascular Heart rate: 79 Rhythm: regular Heart Sounds: Present: S1 & S2. Absent: rub, click - Extremities Extremities: pulses symmetrical, No edema Peripheral Pulses: within normal limits - Abdominal General gastrointestinal: Present: soft, non-tender, non-distended, normal bowel sounds Male genitourinary: Present: normal - Integumentary Integumentary: Present: clear, warm, dry - Musculoskeletal Musculoskeletal: gait normal, strength equal bilaterally - Psychiatric Psychiatric: appropriate mood/affect, intact judgment & insight - Neurologic Neurologic: CNII-XII intact, moves all extremities Results - Labs CBC & Chem 7: 03/25/22 06:02 03/25/22 06:02 Labs: Laboratory Last Values WBC 6.4 K/mm3 (4.5-11.0) 03/24/22 14:20 RBC 2.67 M/mm3 (3.65-5.03) L 03/24/22 14:20 Hgb 7.8 gm/dl (11.8-15.2) L 03/24/22 14:20 Hct 24.8 % (35.5-45.6) L 03/24/22 14:20 MCV 93 fl (84-94) 03/24/22 14:20 MCH 29 pg (28-32) 03/24/22 14:20 MCHC 32 % (32-34) 03/24/22 14:20 RDW 18.5 % (13.2-15.2) H 03/24/22 14:20 Plt Count 203 K/mm3 (140-440) 03/24/22 14:20 Lymph % (Auto) 16.8 % (13.4-35.0) 03/24/22 14:20 [place] % (Auto) 5.4 % (0.0-7.3) 03/24/22 14:20 Eos % (Auto) 2.5 % (0.0-4.3) 03/24/22 14:20 Baso % (Auto) 1.4 % (0.0-1.8) 03/24/22 14:20 Lymph # (Auto) 1.1 K/mm3 (1.2-5.4) L 03/24/22 14:20 [place] # (Auto) 0.3 K/mm3 (0.0-0.8) 03/24/22 14:20 Eos # (Auto) 0.2 K/mm3 (0.0-0.4) 03/24/22 14:20 Baso # (Auto) 0.1 K/mm3 (0.0-0.1) 03/24/22 14:20 Seg Neutrophils % 73.9 % (40.0-70.0) H 03/24/22 14:20 Seg Neutrophils # 4.8 K/mm3 (1.8-7.7) 03/24/22 14:20 Sodium 141 mmol/L (137-145) 03/24/22 14:20 Potassium 5.8 mmol/L (3.6-5.0) H 03/24/22 14:20 Chloride 103.1 mmol/L (98-107) 03/24/22 14:20 Carbon Dioxide 20 mmol/L (22-30) L 03/24/22 14:20 Anion Gap 24 mmol/L 03/24/22 14:20 BUN 124 mg/dL (9-20) H 03/24/22 14:20 Creatinine 18.8 mg/dL (0.8-1.3) H 03/24/22 14:20 Estimated GFR 3 ml/min 03/24/22 14:20 BUN/Creatinine Ratio 7 % 03/24/22 14:20 Glucose 90 mg/dL (75-100) 03/24/22 14:20 Calcium 8.5 mg/dL (8.4-10.2) 03/24/22 14:20 Total Bilirubin 0.30 mg/dL (0.1-1.2) 03/24/22 14:20 AST 18 units/L (5-40) 03/24/22 14:20 ALT < 5 units/L (7-56) L 03/24/22 14:20 Alkaline Phosphatase 45 units/L (35-129) 03/24/22 14:20 Total Protein 6.7 g/dL (6.3-8.2) 03/24/22 14:20 Albumin 4.5 g/dL (3.9-5) 03/24/22 14:20 Albumin/Globulin Ratio 2.0 % 03/24/22 14:20 Hepatitis A IgM Ab Non-reactive (NonReactive) 03/24/22 14:20 Hep Bs Antigen Non-reactive (Negative) 03/24/22 14:20 Hep B Core IgM Ab Non-reactive (NonReactive) 03/24/22 14:20 Hepatitis C Antibody Non-reactive (NonReactive) 03/24/22 14:20 Assessment and Plan Advance Directives: Yes (Full code) VTE prophylaxis?: Chemical Plan of care discussed with patient/family: Yes - Patient Problems (1) Acute respiratory failure with hypoxia Current Visit: Yes Status: Acute Plan to address problem: Patient is emergent hemodialysis Patient is volume overloaded (2) Noncompliance Current Visit: Yes Status: Acute Plan to address problem: Patient counseled about compliance but needs is not in the mood to listen to anyone (3) ESRD needing dialysis Current Visit: Yes Status: Chronic Plan to address problem: Nephrology consulted Emergent hemodialysis for increased ultrafiltration (4) Hyperkalemia Current Visit: Yes Status: Acute Plan to address problem: Treated in the emergency room Repeat potassium level (5) DVT prophylaxis Current Visit: Yes Status: Acute Plan to address problem: On heparin GI prophylaxis (6) Advance care planning Current Visit: Yes Status: Acute Plan to address problem: Disease education conducted, care plan discussed, prognosis and diagnosis discussed. Patient is full code. Patient acknowledged understanding with care plan. +30 minutes.
[2022-03-24] MEDS ORDERED: oxyCODONE /ACETAMINOPHEN 5-325MG TAB PO PRN (21:23)
[2022-03-24] MEDS ORDERED: METOCLOPRAMIDE 10 MG/2 ML INJ IV PRN ×2 (21:23→21:32)
[2022-03-24] MEDS ORDERED: HYDROmorphone 0.5 MG/0.5 ML INJ IV PRN (21:23)
[2022-03-24] MEDS ORDERED: FAMOTIDINE 20 MG TAB PO SCH (22:00)
[2022-03-24] MEDS: FAMOTIDINE 10 MG TAB PO SCH (22:49)
[2022-03-25 06:21] LABS: Basophils # (Auto) 0.1 K/mm3 (0.0-0.1); Eosinophils # (Auto) 0.1 K/mm3 (0.0-0.4); Hemoglobin 6.3 gm/dl (11.8-15.2); Lymphocytes # (Auto) 0.7 K/mm3 (1.2-5.4); Lymphocytes % (Auto) 18.3 % (13.4-35.0); Mean Corpuscular HGB Conc 32 % (32-34); Mean Corpuscular Volume 91 fl (84-94); Monocytes # (Auto) 0.3 K/mm3 (0.0-0.8); Monocytes % (Auto) 7.1 % (0.0-7.3); Platelet Count 152 K/mm3 (140-440); Red Blood Count 2.15 M/mm3 (3.65-5.03); Red Cell Distribution Width 18.1 % (13.2-15.2)
[2022-03-25 07:00] LABS: Albumin 3.7 g/dL (3.9-5); Blood Urea Nitrogen 69 mg/dL (9-20); Calcium 8.1 mg/dL (8.4-10.2); Hemolysis Index 2
[2022-03-25 07:10] LABS: Alanine Aminotransferase < 5 units/L (7-56); BUN/Creatinine Ratio 6
[2022-03-25 07:42] LABS: Hematocrit 19.6 % (35.5-45.6)
[2022-03-25] MEDS ORDERED: CALCIUM GLUCONATE 2,000 MG in SODIUM CHLORIDE 0.9% 100 ML IV ONE (07:44)
--- NOTE | 2022-03-25 09:08 | Progress Note ---
Assessment and Plan Assessment and plan: Advance Directives: Yes (Full code) VTE prophylaxis?: Chemical Plan of care discussed with patient/family: Yes - Patient Problems (1) Acute respiratory failure with hypoxia Current Visit: Yes Status: Acute Plan to address problem: Patient is emergent hemodialysis Patient is volume overloaded (2) Noncompliance Current Visit: Yes Status: Acute Plan to address problem: Patient counseled about compliance but needs is not in the mood to listen to anyone (3) ESRD needing dialysis Current Visit: Yes Status: Chronic Plan to address problem: Nephrology consulted Emergent hemodialysis for increased ultrafiltration (4) Hyperkalemia Current Visit: Yes Status: Acute Plan to address problem: Treated in the emergency room Repeat potassium level (5) DVT prophylaxis Current Visit: Yes Status: Acute Plan to address problem: On heparin GI prophylaxis -- Medical noncompliance ; (6) Advance care planning Current Visit: Yes Status: Acute Plan to address problem: Disease education conducted, care plan discussed, prognosis and diagnosis discussed. Patient is full code. Patient acknowledged understanding with care plan. +30 minutes. Preventive care counseling; 30 minutes History Interval history: Seen and examined the patient at the bedside Patient's chart and medications reviewed Patient's hemoglobin is 6.3 Recommended 1 unit of PRBC transfusion Patient initially refused Said he would consider Vital signs noted Hospitalist Physical - Constitutional Vitals: Temp Pulse Resp BP Pulse Ox 98.9 F 95 H 20 137/79 98 03/25/22 08:07 03/25/22 08:07 03/25/22 04:03 03/25/22 08:07 03/25/22 08:07 General appearance: Present: no acute distress, well-nourished - EENT Eyes: Present: PERRL, EOM intact - Neck Neck: Present: supple, normal ROM - Respiratory Respiratory effort: normal Respiratory: bilateral: diminished, negative: rales, rhonchi, wheezing - Cardiovascular Rhythm: regular Heart Sounds: Present: S1 & S2 - Extremities Extremities: no ischemia, No edema - Abdominal General gastrointestinal: soft, non-tender, non-distended, normal bowel sounds - Integumentary Integumentary: Present: clear, warm - Psychiatric Psychiatric: appropriate mood/affect, cooperative - Neurologic Neurologic: CNII-XII intact, moves all extremities Results - Labs CBC & Chem 7: 03/25/22 06:02 03/25/22 06:02 Labs: Laboratory Last Values WBC 4.0 K/mm3 (4.5-11.0) L 03/25/22 06:02 RBC 2.15 M/mm3 (3.65-5.03) L 03/25/22 06:02 Hgb 6.3 gm/dl (11.8-15.2) L 03/25/22 06:02 Hct 19.6 % (35.5-45.6) L* 03/25/22 06:02 MCV 91 fl (84-94) 03/25/22 06:02 MCH 30 pg (28-32) 03/25/22 06:02 MCHC 32 % (32-34) 03/25/22 06:02 RDW 18.1 % (13.2-15.2) H 03/25/22 06:02 Plt Count 152 K/mm3 (140-440) 03/25/22 06:02 Lymph % (Auto) 18.3 % (13.4-35.0) 03/25/22 06:02 [place] % (Auto) 7.1 % (0.0-7.3) 03/25/22 06:02 Eos % (Auto) 2.0 % (0.0-4.3) 03/25/22 06:02 Baso % (Auto) 2.0 % (0.0-1.8) H 03/25/22 06:02 Lymph # (Auto) 0.7 K/mm3 (1.2-5.4) L 03/25/22 06:02 [place] # (Auto) 0.3 K/mm3 (0.0-0.8) 03/25/22 06:02 Eos # (Auto) 0.1 K/mm3 (0.0-0.4) 03/25/22 06:02 Baso # (Auto) 0.1 K/mm3 (0.0-0.1) 03/25/22 06:02 Seg Neutrophils % 70.6 % (40.0-70.0) H 03/25/22 06:02 Seg Neutrophils # 2.8 K/mm3 (1.8-7.7) 03/25/22 06:02 Sodium 140 mmol/L (137-145) 03/25/22 06:02 Potassium 4.6 mmol/L (3.6-5.0) D 03/25/22 06:02 Chloride 102.1 mmol/L (98-107) 03/25/22 06:02 Carbon Dioxide 21 mmol/L (22-30) L 03/25/22 06:02 Anion Gap 22 mmol/L 03/25/22 06:02 BUN 69 mg/dL (9-20) H 03/25/22 06:02 Creatinine 12.0 mg/dL (0.8-1.3) H 03/25/22 06:02 Estimated GFR 5 ml/min 03/25/22 06:02 BUN/Creatinine Ratio 6 % 03/25/22 06:02 Glucose 79 mg/dL (75-100) 03/25/22 06:02 Calcium 8.1 mg/dL (8.4-10.2) L 03/25/22 06:02 Total Bilirubin 0.40 mg/dL (0.1-1.2) 03/25/22 06:02 AST 11 units/L (5-40) 03/25/22 06:02 ALT < 5 units/L (7-56) L 03/25/22 06:02 Alkaline Phosphatase 37 units/L (35-129) 03/25/22 06:02 Total Protein 5.4 g/dL (6.3-8.2) L 03/25/22 06:02 Albumin 3.7 g/dL (3.9-5) L 03/25/22 06:02 Albumin/Globulin Ratio 2.2 % 03/25/22 06:02 Hepatitis A IgM Ab Non-reactive (NonReactive) 03/24/22 14:20 Hep Bs Antigen Non-reactive (Negative) 03/24/22 14:20 Hep B Core IgM Ab Non-reactive (NonReactive) 03/24/22 14:20 Hepatitis C Antibody Non-reactive (NonReactive) 03/24/22 14:20 [place]/IV: Voiding Method Urinal Active Medications - Current Medications Current Medications: Generic Name Dose Route Start Last Admin Trade Name Freq PRN Reason Stop Dose Admin Acetaminophen 650 mg 03/24/22 21:23 Acetaminophen 325 Mg Tab PO Q4H PRN Pain MILD(1-3)/Fever >100.5/GILL Albumin Human 25 gm 03/24/22 17:30 Albumin Human 25% (25 Gm/100 Ml) Inj IV SHAHANA PRN Hypotension Epoetin Matheus-epbx 10,000 unit 03/24/22 17:30 03/24/22 20:20 Epoetin Matheus-Epbx 10,000 Unit/1 Ml Vial IV 10,000 unit SHAHANA PRN Administration hemodialysis Famotidine 10 mg 03/24/22 22:00 03/24/22 22:49 Famotidine 10 Mg Tab PO 10 mg BID ОЛЬГА Administration Hydromorphone HCl 0.5 mg 03/24/22 21:23 Hydromorphone 0.5 Mg/0.5 Ml Inj IV Q3H PRN Pain , Severe (7-10) Sodium Chloride 100 mls @ 999 mls/hr 03/24/22 18:00 Nacl 0.9% IV SHAHANA PRN Hypotension Metoclopramide HCl 2.5 mg 03/24/22 21:32 Metoclopramide 10 Mg/2 Ml Inj IV Q6H PRN Nausea And Vomiting Morphine Sulfate 2 mg 03/24/22 16:18 Morphine 2 Mg/1 Ml Inj IV Q4H PRN Pain, Moderate (4-6) Ondansetron HCl 4 mg 03/24/22 21:23 Ondansetron 4 Mg/2 Ml Inj IV Q8H PRN Nausea And Vomiting Oxycodone/Acetaminophen 1 tab 03/24/22 21:23 Oxycodone /Acetaminophen 5-325mg Tab PO Q6H PRN Pain, Moderate (4-6) Sodium Chloride 10 ml 03/24/22 22:00 03/24/22 22:49 Sodium Chloride 0.9% 10 Ml Flush Syringe IV 10 ml BID ОЛЬГА Administration Sodium Chloride 10 ml 03/24/22 21:23 Sodium Chloride 0.9% 10 Ml Flush Syringe IV PRN PRN LINE FLUSH
[2022-03-25] MEDS ORDERED: SODIUM CHLORIDE 0.9% 500 ML 500 ML IV ONE ×3 (09:12→21:57)
[2022-03-25] MEDS: FAMOTIDINE 10 MG TAB PO SCH ×2 (09:13→21:40)
[2022-03-25] MEDS ORDERED: EPOETIN ALFA-EPBX 10,000 UNIT/1 ML VIAL IV PRN (16:21)
--- NOTE | 2022-03-25 16:23 | Progress Note ---
Assessment and Plan Impression: * ESRD * Uremia * Anemia in ESRD * hyperkalemia * metabolic acidosis * HTN Plan * HD today for solute and volume control * PRBCs prn--keep HB >7 * epogen with hd * strict i/os * renal diet * stress compliance with medical care, this has been his issue when trying to find a dialysis unit * ok to dc home after hd from renal standpoint Subjective Date of service: 03/25/22 Interval history: labs and chart reviewed no acute events noted Objective - Exam Narrative Exam: exam deferred - Vital Signs Vital signs: Vital Signs - 12hr 03/25/22 03/25/22 03/25/22 07:00 08:07 11:00 Temperature 98.9 F Pulse Rate 90 95 H Respiratory 18 Rate Blood Pressure 137/79 Blood Pressure [Left] O2 Sat by Pulse 98 98 Oximetry 03/25/22 12:00 Temperature 97.9 F Pulse Rate 88 Respiratory 18 Rate Blood Pressure Blood Pressure 143/84 [Left] O2 Sat by Pulse Oximetry - Lab 03/25/22 06:02 03/25/22 06:02 Most recent lab results Calcium 8.1 mg/dL (8.4-10.2) L 03/25/22 06:02 Medications & Allergies - Medications Allergies/Adverse Reactions: Allergies No Known Allergies Allergy (Verified 02/01/22 12:02) Active Medications: Generic Name Dose Route Start Last Admin Trade Name Freq PRN Reason Stop Dose Admin Acetaminophen 650 mg 03/24/22 21:23 Acetaminophen 325 Mg Tab PO Q4H PRN Pain MILD(1-3)/Fever >100.5/GILL Albumin Human 25 gm 03/24/22 17:30 Albumin Human 25% (25 Gm/100 Ml) Inj IV SHAHANA PRN Hypotension Epoetin Matheus-epbx 20,000 unit 03/25/22 16:21 Epoetin Matheus-Epbx 10,000 Unit/1 Ml Vial IV SHAHANA PRN hemodialysis Famotidine 10 mg 03/24/22 22:00 03/25/22 09:13 Famotidine 10 Mg Tab PO 10 mg BID ОЛЬГА Administration Hydromorphone HCl 0.5 mg 03/24/22 21:23 Hydromorphone 0.5 Mg/0.5 Ml Inj IV Q3H PRN Pain , Severe (7-10) Sodium Chloride 100 mls @ 999 mls/hr 03/24/22 18:00 Nacl 0.9% IV SHAHANA PRN Hypotension Metoclopramide HCl 2.5 mg 03/24/22 21:32 Metoclopramide 10 Mg/2 Ml Inj IV Q6H PRN Nausea And Vomiting Morphine Sulfate 2 mg 03/24/22 16:18 Morphine 2 Mg/1 Ml Inj IV Q4H PRN Pain, Moderate (4-6) Ondansetron HCl 4 mg 03/24/22 21:23 Ondansetron 4 Mg/2 Ml Inj IV Q8H PRN Nausea And Vomiting Oxycodone/Acetaminophen 1 tab 03/24/22 21:23 Oxycodone /Acetaminophen 5-325mg Tab PO Q6H PRN Pain, Moderate (4-6) Sodium Chloride 10 ml 03/24/22 22:00 03/25/22 09:13 Sodium Chloride 0.9% 10 Ml Flush Syringe IV 10 ml BID ОЛЬГА Administration Sodium Chloride 10 ml 03/24/22 21:23 Sodium Chloride 0.9% 10 Ml Flush Syringe IV PRN PRN LINE FLUSH
[2022-03-26 07:45] LABS: Hematocrit 25.9 % (35.5-45.6); Hemoglobin 8.4 gm/dl (11.8-15.2)
[2022-03-26 07:53] LABS: Calcium 8.9 mg/dL (8.4-10.2)
--- NOTE | 2022-03-26 10:26 | Progress Note ---
Assessment and Plan Impression: * ESRD * Uremia * Anemia in ESRD * hyperkalemia * metabolic acidosis * HTN Plan * HD in am if dialysis nurses available, did not receive yesterday due to lack of HD nurses * PRBCs prn--keep HB >7 * kayexalate one dose today * epogen with hd * strict i/os * renal diet * stress compliance with medical care, this has been his issue when trying to find a dialysis unit * ok to dc home after hd from renal standpoint Subjective Date of service: 03/26/22 Interval history: labs and chart reviewed no acute events noted Objective - Exam Narrative Exam: exam deferred - Vital Signs Vital signs: Vital Signs - 12hr 03/25/22 03/25/22 03/25/22 22:45 23:00 23:30 Temperature 98.7 F 97.9 F 98.0 F Pulse Rate 92 H 87 89 Respiratory 18 18 18 Rate Blood Pressure 155/89 155/88 155/87 Blood Pressure [Left] O2 Sat by Pulse 96 96 66 L Oximetry 03/26/22 03/26/22 03/26/22 00:00 00:30 01:00 Temperature 98.4 F 97.2 F L 97.8 F Pulse Rate 84 84 4 L Respiratory 18 18 18 Rate Blood Pressure 163/80 164/90 160/88 Blood Pressure [Left] O2 Sat by Pulse 96 96 66 L Oximetry 03/26/22 03/26/22 03/26/22 01:30 02:00 04:00 Temperature 98.0 F 98.2 F 97.9 F Pulse Rate 84 80 86 Respiratory 18 20 Rate Blood Pressure 165/92 162/89 Blood Pressure 159/89 [Left] O2 Sat by Pulse 96 98 97 Oximetry 03/26/22 07:48 Temperature 98.0 F Pulse Rate 82 Respiratory Rate Blood Pressure 151/90 Blood Pressure [Left] O2 Sat by Pulse 97 Oximetry - Lab 03/26/22 04:00 03/26/22 04:00 Most recent lab results Calcium 8.9 mg/dL (8.4-10.2) 03/26/22 04:00 Medications & Allergies - Medications Allergies/Adverse Reactions: Allergies No Known Allergies Allergy (Verified 02/01/22 12:02) Active Medications: Generic Name Dose Route Start Last Admin Trade Name Freq PRN Reason Stop Dose Admin Acetaminophen 650 mg 03/24/22 21:23 Acetaminophen 325 Mg Tab PO Q4H PRN Pain MILD(1-3)/Fever >100.5/GILL Albumin Human 25 gm 03/24/22 17:30 Albumin Human 25% (25 Gm/100 Ml) Inj IV SHAHANA PRN Hypotension Epoetin Matheus-epbx 20,000 unit 03/25/22 16:21 Epoetin Matheus-Epbx 10,000 Unit/1 Ml Vial IV SHAHANA PRN hemodialysis Famotidine 10 mg 03/24/22 22:00 03/25/22 21:40 Famotidine 10 Mg Tab PO 10 mg BID ОЛЬГА Administration Hydromorphone HCl 0.5 mg 03/24/22 21:23 Hydromorphone 0.5 Mg/0.5 Ml Inj IV Q3H PRN Pain , Severe (7-10) Sodium Chloride 100 mls @ 999 mls/hr 03/24/22 18:00 Nacl 0.9% IV SHAHANA PRN Hypotension Metoclopramide HCl 2.5 mg 03/24/22 21:32 Metoclopramide 10 Mg/2 Ml Inj IV Q6H PRN Nausea And Vomiting Morphine Sulfate 2 mg 03/24/22 16:18 Morphine 2 Mg/1 Ml Inj IV Q4H PRN Pain, Moderate (4-6) Ondansetron HCl 4 mg 03/24/22 21:23 Ondansetron 4 Mg/2 Ml Inj IV Q8H PRN Nausea And Vomiting Oxycodone/Acetaminophen 1 tab 03/24/22 21:23 Oxycodone /Acetaminophen 5-325mg Tab PO Q6H PRN Pain, Moderate (4-6) Sodium Chloride 10 ml 03/24/22 22:00 03/25/22 21:40 Sodium Chloride 0.9% 10 Ml Flush Syringe IV 10 ml BID ОЛЬГА Administration Sodium Chloride 10 ml 03/24/22 21:23 Sodium Chloride 0.9% 10 Ml Flush Syringe IV PRN PRN LINE FLUSH
[2022-03-26] MEDS ORDERED: SODIUM POLYSTYRENE 15 GM/60 ML ORAL LIQD PO ONE (11:00)
[2022-03-26] MEDS: FAMOTIDINE 10 MG TAB PO SCH ×2 (12:31→21:15)
--- NOTE | 2022-03-26 13:26 | Progress Note ---
Assessment and Plan Assessment and plan: (1) Acute respiratory failure with hypoxia Current Visit: Yes Status: Acute Plan to address problem: Patient is emergent hemodialysis Patient is volume overloaded (2) Noncompliance Current Visit: Yes Status: Acute Plan to address problem: Patient counseled about compliance but needs is not in the mood to listen to anyone (3) ESRD needing dialysis Current Visit: Yes Status: Chronic Plan to address problem: Nephrology consulted Emergent hemodialysis for increased ultrafiltration (4) Hyperkalemia Current Visit: Yes Status: Acute Plan to address problem: Treated in the emergency room Repeat potassium level (5) DVT prophylaxis Current Visit: Yes Status: Acute Plan to address problem: On heparin GI prophylaxis -- Medical noncompliance ; (6) Advance care planning Current Visit: Yes Status: Acute Plan to address problem: Disease education conducted, care plan discussed, prognosis and diagnosis discussed. Patient is full code. Patient acknowledged understanding with care plan. +30 minutes. 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 Vital signs noted Hospitalist Physical - Constitutional Vitals: Temp Pulse Resp BP Pulse Ox 98.0 F 79 20 151/90 98 03/26/22 07:48 03/26/22 12:00 03/26/22 10:00 03/26/22 07:48 03/26/22 10:00 General appearance: Present: no acute distress, well-nourished - EENT Eyes: Present: PERRL, EOM intact - Neck Neck: Present: supple, normal ROM - Respiratory Respiratory effort: normal Respiratory: bilateral: diminished, negative: rales, rhonchi, wheezing - Cardiovascular Rhythm: regular Heart Sounds: Present: S1 & S2 - Extremities Extremities: no ischemia, No edema - Abdominal General gastrointestinal: soft, non-tender, non-distended, normal bowel sounds - Integumentary Integumentary: Present: clear, warm - Psychiatric Psychiatric: appropriate mood/affect, cooperative - Neurologic Neurologic: CNII-XII intact, moves all extremities Results - Labs CBC & Chem 7: 03/26/22 04:00 03/26/22 04:00 Labs: Laboratory Last Values WBC 4.0 K/mm3 (4.5-11.0) L 03/25/22 06:02 RBC 2.15 M/mm3 (3.65-5.03) L 03/25/22 06:02 Hgb 8.4 gm/dl (11.8-15.2) L 03/26/22 04:00 Hct 25.9 % (35.5-45.6) L D 03/26/22 04:00 MCV 91 fl (84-94) 03/25/22 06:02 MCH 30 pg (28-32) 03/25/22 06:02 MCHC 32 % (32-34) 03/25/22 06:02 RDW 18.1 % (13.2-15.2) H 03/25/22 06:02 Plt Count 152 K/mm3 (140-440) 03/25/22 06:02 Lymph % (Auto) 18.3 % (13.4-35.0) 03/25/22 06:02 [place] % (Auto) 7.1 % (0.0-7.3) 03/25/22 06:02 Eos % (Auto) 2.0 % (0.0-4.3) 03/25/22 06:02 Baso % (Auto) 2.0 % (0.0-1.8) H 03/25/22 06:02 Lymph # (Auto) 0.7 K/mm3 (1.2-5.4) L 03/25/22 06:02 [place] # (Auto) 0.3 K/mm3 (0.0-0.8) 03/25/22 06:02 Eos # (Auto) 0.1 K/mm3 (0.0-0.4) 03/25/22 06:02 Baso # (Auto) 0.1 K/mm3 (0.0-0.1) 03/25/22 06:02 Seg Neutrophils % 70.6 % (40.0-70.0) H 03/25/22 06:02 Seg Neutrophils # 2.8 K/mm3 (1.8-7.7) 03/25/22 06:02 Sodium 140 mmol/L (137-145) 03/26/22 04:00 Potassium 5.3 mmol/L (3.6-5.0) H 03/26/22 04:00 Chloride 100.4 mmol/L (98-107) 03/26/22 04:00 Carbon Dioxide 22 mmol/L (22-30) 03/26/22 04:00 Anion Gap 23 mmol/L 03/26/22 04:00 BUN 77 mg/dL (9-20) H 03/26/22 04:00 Creatinine 13.4 mg/dL (0.8-1.3) H 03/26/22 04:00 Estimated GFR 4 ml/min 03/26/22 04:00 BUN/Creatinine Ratio 6 % 03/26/22 04:00 Glucose 69 mg/dL (75-100) L 03/26/22 04:00 Calcium 8.9 mg/dL (8.4-10.2) 03/26/22 04:00 Total Bilirubin 0.40 mg/dL (0.1-1.2) 03/25/22 06:02 AST 11 units/L (5-40) 03/25/22 06:02 ALT < 5 units/L (7-56) L 03/25/22 06:02 Alkaline Phosphatase 37 units/L (35-129) 03/25/22 06:02 Total Protein 5.4 g/dL (6.3-8.2) L 03/25/22 06:02 Albumin 3.7 g/dL (3.9-5) L 03/25/22 06:02 Albumin/Globulin Ratio 2.2 % 03/25/22 06:02 Hepatitis A IgM Ab Non-reactive (NonReactive) 03/24/22 14:20 Hep Bs Antigen Non-reactive (Negative) 03/24/22 14:20 Hep B Core IgM Ab Non-reactive (NonReactive) 03/24/22 14:20 Hepatitis C Antibody Non-reactive (NonReactive) 03/24/22 14:20 Blood Type A POSITIVE 03/25/22 10:45 Antibody Screen Negative 03/25/22 10:45 Crossmatch See Detail 03/25/22 10:45 [place]/IV: Voiding Method Urinal Active Medications - Current Medications Current Medications: Generic Name Dose Route Start Last Admin Trade Name Freq PRN Reason Stop Dose Admin Acetaminophen 650 mg 03/24/22 21:23 Acetaminophen 325 Mg Tab PO Q4H PRN Pain MILD(1-3)/Fever >100.5/GILL Albumin Human 25 gm 03/24/22 17:30 Albumin Human 25% (25 Gm/100 Ml) Inj IV SHAHANA PRN Hypotension Epoetin Matheus-epbx 20,000 unit 03/25/22 16:21 Epoetin Matheus-Epbx 10,000 Unit/1 Ml Vial IV SHAHANA PRN hemodialysis Famotidine 10 mg 03/24/22 22:00 03/26/22 12:31 Famotidine 10 Mg Tab PO 10 mg BID ОЛЬГА Administration Hydromorphone HCl 0.5 mg 03/24/22 21:23 Hydromorphone 0.5 Mg/0.5 Ml Inj IV Q3H PRN Pain , Severe (7-10) Sodium Chloride 100 mls @ 999 mls/hr 03/24/22 18:00 Nacl 0.9% IV SHAHANA PRN Hypotension Metoclopramide HCl 2.5 mg 03/24/22 21:32 Metoclopramide 10 Mg/2 Ml Inj IV Q6H PRN Nausea And Vomiting Morphine Sulfate 2 mg 03/24/22 16:18 Morphine 2 Mg/1 Ml Inj IV Q4H PRN Pain, Moderate (4-6) Ondansetron HCl 4 mg 03/24/22 21:23 Ondansetron 4 Mg/2 Ml Inj IV Q8H PRN Nausea And Vomiting Oxycodone/Acetaminophen 1 tab 03/24/22 21:23 Oxycodone /Acetaminophen 5-325mg Tab PO Q6H PRN Pain, Moderate (4-6) Sodium Chloride 10 ml 03/24/22 22:00 03/26/22 12:31 Sodium Chloride 0.9% 10 Ml Flush Syringe IV 10 ml BID ОЛЬГА Administration Sodium Chloride 10 ml 03/24/22 21:23 Sodium Chloride 0.9% 10 Ml Flush Syringe IV PRN PRN LINE FLUSH Nutrition/Malnutrition Assess - Dietary Evaluation Nutrition/Malnutrition Findings: Nutrition Notes Start: 03/25/22 12:57 Freq: Status: Active Protocol: Document 03/25/22 12:57 LESLI (Rec: 03/25/22 13:05 LESLI [id number]) Nutrition Notes 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 He was admitted with c/ o increasing SOB x 1 wk. Pt with hx of non-compliance with HD. His last HD had been 2-3 wks TE[facility]. He received emergent HD yesterday upon arrival. Pt says he used to do PD, but was converted to HD sec to non-compliance. He now knows the importance of HD and is willing to participate in HD as ordered by MD. He reports fair appetite (depends on what food is served). Burn Absent Trauma Absent Skin Integrity/Comment No skin breakdown reported Minimum of two criteria No Is patient on ventilator? No Is Patient Ambulatory and/or Out of Bed Yes REE-([place] or-ambulatory/OOB) [ 1772.719 [id number]] Calculation [facility] Additional Notes Pro needs >1.2g/kg: >76g/day Fluid needs 1-1.5L/day Nutrition Intervention Follow-Up By: 03/30/22 Additional Comments F/U: intakes
[2022-03-27 05:12] VITALS: BP 176/99
--- NOTE | 2022-03-27 08:21 | Progress Note ---
Assessment and Plan Assessment and plan: (1) Acute respiratory failure with hypoxia Due to fluid Patient received hemodialysis HD per schedule (2) medical noncompliance Patient counseled about compliance but needs is not in the mood to listen to anyone (3) ESRD needing dialysis Nephrology following Emergent hemodialysis for increased ultrafiltration HD per schedule Outpatient HD placement as needed (4) Hyperkalemia Treated in the emergency room Monitor potassium level (5) DVT prophylaxis On heparin GI prophylaxis -- Medical noncompliance ; Patient counseled importance of adhering to the treatment plans mainly hemodialysis and doctors visits Patient also advised to follow renal diet and fluid restriction Patient verbalized understanding -- Advance care planning +35 min Disease education conducted, care plan discussed, prognosis and diagnosis discussed. Patient is full code. Patient acknowledged understanding with care plan. +30 minutes. Preventive care counseling; 30 minutes Patient strongly advised to comply with medications, diet, follow-up visits and hemodialysis Risks and consequences and complications leading to even if he misses hemodialysis Patient verbalized understanding Hospitalist Physical - Constitutional Vitals: Temp Pulse Resp BP Pulse Ox 98.4 F 90 18 176/99 97 03/27/22 05:11 03/27/22 05:11 03/27/22 05:11 03/27/22 05:11 03/27/22 05:11 General appearance: Present: no acute distress, well-nourished Results - Labs CBC & Chem 7: 03/26/22 04:00 03/26/22 04:00 Labs: Laboratory Last Values WBC 4.0 K/mm3 (4.5-11.0) L 03/25/22 06:02 RBC 2.15 M/mm3 (3.65-5.03) L 03/25/22 06:02 Hgb 8.4 gm/dl (11.8-15.2) L 03/26/22 04:00 Hct 25.9 % (35.5-45.6) L D 03/26/22 04:00 MCV 91 fl (84-94) 03/25/22 06:02 MCH 30 pg (28-32) 03/25/22 06:02 MCHC 32 % (32-34) 03/25/22 06:02 RDW 18.1 % (13.2-15.2) H 03/25/22 06:02 Plt Count 152 K/mm3 (140-440) 03/25/22 06:02 Lymph % (Auto) 18.3 % (13.4-35.0) 03/25/22 06:02 [place] % (Auto) 7.1 % (0.0-7.3) 03/25/22 06:02 Eos % (Auto) 2.0 % (0.0-4.3) 03/25/22 06:02 Baso % (Auto) 2.0 % (0.0-1.8) H 03/25/22 06:02 Lymph # (Auto) 0.7 K/mm3 (1.2-5.4) L 03/25/22 06:02 [place] # (Auto) 0.3 K/mm3 (0.0-0.8) 03/25/22 06:02 Eos # (Auto) 0.1 K/mm3 (0.0-0.4) 03/25/22 06:02 Baso # (Auto) 0.1 K/mm3 (0.0-0.1) 03/25/22 06:02 Seg Neutrophils % 70.6 % (40.0-70.0) H 03/25/22 06:02 Seg Neutrophils # 2.8 K/mm3 (1.8-7.7) 03/25/22 06:02 Sodium 140 mmol/L (137-145) 03/26/22 04:00 Potassium 5.3 mmol/L (3.6-5.0) H 03/26/22 04:00 Chloride 100.4 mmol/L (98-107) 03/26/22 04:00 Carbon Dioxide 22 mmol/L (22-30) 03/26/22 04:00 Anion Gap 23 mmol/L 03/26/22 04:00 BUN 77 mg/dL (9-20) H 03/26/22 04:00 Creatinine 13.4 mg/dL (0.8-1.3) H 03/26/22 04:00 Estimated GFR 4 ml/min 03/26/22 04:00 BUN/Creatinine Ratio 6 % 03/26/22 04:00 Glucose 69 mg/dL (75-100) L 03/26/22 04:00 Calcium 8.9 mg/dL (8.4-10.2) 03/26/22 04:00 Total Bilirubin 0.40 mg/dL (0.1-1.2) 03/25/22 06:02 AST 11 units/L (5-40) 03/25/22 06:02 ALT < 5 units/L (7-56) L 03/25/22 06:02 Alkaline Phosphatase 37 units/L (35-129) 03/25/22 06:02 Total Protein 5.4 g/dL (6.3-8.2) L 03/25/22 06:02 Albumin 3.7 g/dL (3.9-5) L 03/25/22 06:02 Albumin/Globulin Ratio 2.2 % 03/25/22 06:02 Hepatitis A IgM Ab Non-reactive (NonReactive) 03/24/22 14:20 Hep Bs Antigen Non-reactive (Negative) 03/24/22 14:20 Hep B Core IgM Ab Non-reactive (NonReactive) 03/24/22 14:20 Hepatitis C Antibody Non-reactive (NonReactive) 03/24/22 14:20 Blood Type A POSITIVE 03/25/22 10:45 Antibody Screen Negative 03/25/22 10:45 Crossmatch See Detail 03/25/22 10:45 [place]/IV: Voiding Method Urinal Active Medications - Current Medications Current Medications: Generic Name Dose Route Start Last Admin Trade Name Freq PRN Reason Stop Dose Admin Acetaminophen 650 mg 03/24/22 21:23 Acetaminophen 325 Mg Tab PO Q4H PRN Pain MILD(1-3)/Fever >100.5/GILL Albumin Human 25 gm 03/24/22 17:30 Albumin Human 25% (25 Gm/100 Ml) Inj IV SHAHANA PRN Hypotension Epoetin Matheus-epbx 20,000 unit 03/25/22 16:21 Epoetin Matheus-Epbx 10,000 Unit/1 Ml Vial IV SHAHANA PRN hemodialysis Famotidine 10 mg 03/24/22 22:00 03/26/22 21:15 Famotidine 10 Mg Tab PO 10 mg BID ОЛЬГА Administration Hydromorphone HCl 0.5 mg 03/24/22 21:23 Hydromorphone 0.5 Mg/0.5 Ml Inj IV Q3H PRN Pain , Severe (7-10) Sodium Chloride 100 mls @ 999 mls/hr 03/24/22 18:00 Nacl 0.9% IV SHAHANA PRN Hypotension Metoclopramide HCl 2.5 mg 03/24/22 21:32 Metoclopramide 10 Mg/2 Ml Inj IV Q6H PRN Nausea And Vomiting Morphine Sulfate 2 mg 03/24/22 16:18 Morphine 2 Mg/1 Ml Inj IV Q4H PRN Pain, Moderate (4-6) Ondansetron HCl 4 mg 03/24/22 21:23 Ondansetron 4 Mg/2 Ml Inj IV Q8H PRN Nausea And Vomiting Oxycodone/Acetaminophen 1 tab 03/24/22 21:23 Oxycodone /Acetaminophen 5-325mg Tab PO Q6H PRN Pain, Moderate (4-6) Sodium Chloride 10 ml 03/24/22 22:00 03/26/22 21:15 Sodium Chloride 0.9% 10 Ml Flush Syringe IV 10 ml BID ОЛЬГА Administration Sodium Chloride 10 ml 03/24/22 21:23 Sodium Chloride 0.9% 10 Ml Flush Syringe IV PRN PRN LINE FLUSH Nutrition/Malnutrition Assess - Dietary Evaluation Nutrition/Malnutrition Findings: Nutrition Notes Start: 03/25/22 12:57 Freq: Status: Active Protocol: Document 03/25/22 12:57 LESLI (Rec: 03/25/22 13:05 [facility] [id number]) Nutrition Notes 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 He was admitted with c/ o increasing SOB x 1 wk. Pt with hx of non-compliance with HD. His last HD had been 2-3 wks [facility]. He received emergent HD yesterday upon arrival. Pt says he used to do PD, but was converted to HD sec to non-compliance. He now knows the importance of HD and is willing to participate in HD as ordered by MD. He reports fair appetite (depends on what food is served). Burn Absent Trauma Absent Skin Integrity/Comment No skin breakdown reported Minimum of two criteria No Is patient on ventilator? No Is Patient Ambulatory and/or Out of Bed Yes REE-([facility]-ambulatory/OOB) [ 1772.719 [id number]] Calculation Used for Recommendations [facility] Additional Notes Pro needs >1.2g/kg: >76g/day Fluid needs 1-1.5L/day Nutrition Intervention Follow-Up By: 03/30/22 Additional Comments F/U: intakes
[2022-03-27 10:26] LABS: Hematocrit 25.9 % (35.5-45.6); Hemoglobin 8.4 gm/dl (11.8-15.2)
[2022-03-27 10:43] LABS: Calcium 8.8 mg/dL (8.4-10.2)
[2022-03-27] MEDS: FAMOTIDINE 10 MG TAB PO SCH (11:42)
--- NOTE | 2022-03-27 11:57 | Progress Note ---
Assessment and Plan Impression: * ESRD * Uremia * Anemia in ESRD * hyperkalemia * metabolic acidosis * HTN Plan * HD today * PRBCs prn--keep HB >7 * S/p kayexalate x 1 * epogen with hd * strict i/os * renal diet * stress compliance with medical care, this has been his issue when trying to find a dialysis unit * SW assitance with placement, he is to present to the ER thrice weekly for HD if unable to secure HD unit Subjective Date of service: 03/27/22 Principal diagnosis: Fluid overload Interval history: Resting in bed, awaiting dialysis. Vitals, labs and I/os reviewed Interdisciplinary notes and consults reviewed Objective - Exam Narrative Exam: Constitutional: no acute distress Head: NC/AT Neck: supple Lungs: clear to auscultation CV: RRR, no M/R/G Abdomen: soft, non-tender, bowel sounds present Back: nontender Extremities: no edema, pulses WNL Skin: intact Neuro: no focal deficits, alert and oriented x4 - Vital Signs Vital signs: Vital Signs - 12hr 03/27/22 05:11 Temperature 98.4 F Pulse Rate 90 Respiratory 18 Rate Blood Pressure 176/99 O2 Sat by Pulse 97 Oximetry - Lab 03/27/22 09:15 03/27/22 09:15 Most recent lab results Calcium 8.8 mg/dL (8.4-10.2) 03/27/22 09:15 Medications & Allergies - Medications Allergies/Adverse Reactions: Allergies No Known Allergies Allergy (Verified 02/01/22 12:02) Active Medications: Generic Name Dose Route Start Last Admin Trade Name Freq PRN Reason Stop Dose Admin Acetaminophen 650 mg 03/24/22 21:23 Acetaminophen 325 Mg Tab PO Q4H PRN Pain MILD(1-3)/Fever >100.5/GILL Albumin Human 25 gm 03/24/22 17:30 Albumin Human 25% (25 Gm/100 Ml) Inj IV SHAHANA PRN Hypotension Epoetin Matheus-epbx 20,000 unit 03/25/22 16:21 Epoetin Matheus-Epbx 10,000 Unit/1 Ml Vial IV SHAHANA PRN hemodialysis Famotidine 10 mg 03/24/22 22:00 03/27/22 11:42 Famotidine 10 Mg Tab PO 10 mg BID ОЛЬГА Administration Hydromorphone HCl 0.5 mg 03/24/22 21:23 Hydromorphone 0.5 Mg/0.5 Ml Inj IV Q3H PRN Pain , Severe (7-10) Sodium Chloride 100 mls @ 999 mls/hr 03/24/22 18:00 Nacl 0.9% IV SHAHANA PRN Hypotension Metoclopramide HCl 2.5 mg 03/24/22 21:32 Metoclopramide 10 Mg/2 Ml Inj IV Q6H PRN Nausea And Vomiting Morphine Sulfate 2 mg 03/24/22 16:18 Morphine 2 Mg/1 Ml Inj IV Q4H PRN Pain, Moderate (4-6) Ondansetron HCl 4 mg 03/24/22 21:23 Ondansetron 4 Mg/2 Ml Inj IV Q8H PRN Nausea And Vomiting Oxycodone/Acetaminophen 1 tab 03/24/22 21:23 Oxycodone /Acetaminophen 5-325mg Tab PO Q6H PRN Pain, Moderate (4-6) Sodium Chloride 10 ml 03/24/22 22:00 03/27/22 11:43 Sodium Chloride 0.9% 10 Ml Flush Syringe IV 10 ml BID ОЛЬГА Administration Sodium Chloride 10 ml 03/24/22 21:23 Sodium Chloride 0.9% 10 Ml Flush Syringe IV PRN PRN LINE FLUSH
--- NOTE | 2022-03-27 13:11 | Discharge Summary ---
Providers - Providers Date of Admission: 03/24/22 16:18 Date of discharge: 03/27/22 Attending physician: JEFRY SU 03/24/22 Consult to Case Management [CONS] Routine Services Needed at Discharge: Glass Technologist Notified:: case liner 03/24/22 16:15 Consult to Physician [CONS] Urgent Comment: Consulting Provider: KEO ESCALONA Physician Instructions: Reason For Exam: esrd needimg dialysis Primary care physician: SECURITIES ADVISER Hospitalization Reason for admission: Worsening shortness of breath for 1 week/fluid overload/missed dialysis Condition: Stable Procedures: Hemodialysis per schedule Hospital course: 66-year-old male patient with significant past medical history of end-stage renal disease on hemodialysis, hypertension, noncompliance with dialysis and medications, vascular dementia, cerebral atherosclerosis was admitted through emergency room with worsening shortness of breath of 1 week duration patient has been noncompliant with dialysis for 2 to 3 weeks patient does not have any dialysis center nor any 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 Patient was evaluated by nephrology received dialysis per schedule Patient's blood pressures closely monitored medications optimized Case management try to set up outpatient HD chair however due to his noncompliance she could not process the request' patient had anemia of chronic disease with hemoglobin of 6.3 received 1 unit of PRBC which increased to hemoglobin of 8.4 today patient is comfortable however he is distraught because dialysis centers are not helping him. I counseled the patient that he needs to go to the nearest emergency room or [facility] emergency room on the day of his daniela lysis to receive hemodialysis. Nephrology cleared for discharge And patient is hemodynamically and clinically stable with guarded prognosis due to his noncompliance with dialysis. Again patient is counseled the importance of adhering to the treatment plan He verbalized understanding patient is hemodynamically stable at discharge Discharge diagnosis (1) Acute respiratory failure with hypoxia Due to fluid Patient received hemodialysis HD per schedule (2) medical noncompliance Patient counseled about compliance but needs is not in the mood to listen to anyone (3) ESRD needing dialysis Nephrology following Emergent hemodialysis for increased ultrafiltration HD per schedule Outpatient HD placement as needed (4) Hyperkalemia Treated in the emergency room Monitor potassium level (5) DVT prophylaxis On heparin GI prophylaxis -- Medical noncompliance ; Patient counseled importance of adhering to the treatment plans mainly hemodialysis and doctors visits Patient also advised to follow renal diet and fluid restriction Patient verbalized understanding Nephrology cleared for discharge and follow-up for dialysis Stable at discharge Disposition: 01 HOME / SELF CARE / HOMELESS Final Discharge Diagnosis (Prints w/discharge instructions): Acute respiratory failure with hypoxia. Due to fluid overload/missed hemodialysis. End-stage renal disease on hemodialysis. Hyperkalemia corrected. Medical noncompliance/with dialysis Time spent for discharge: 35 minutes Core Measure Documentation - Palliative Care Palliative Care/ Comfort Measures: Not Applicable - Core Measures Any of the following diagnoses?: none Exam - Constitutional Vitals: Temp Pulse Resp BP Pulse Ox 98.4 F 90 18 176/99 97 03/27/22 05:11 03/27/22 05:11 03/27/22 05:11 03/27/22 05:03/27/22 05:11 General appearance: Present: no acute distress, well-nourished - EENT Eyes: Present: PERRL, EOM intact - Neck Neck: Present: supple, normal ROM - Respiratory Respiratory effort: normal Respiratory: bilateral: diminished, negative: rales, rhonchi, wheezing (Is not my patient) - Cardiovascular Rhythm: regular Heart Sounds: Present: S1 & S2 - Extremities Extremities: no ischemia (20 minutes), No edema - Abdominal General gastrointestinal: Present: soft, non-tender, non-distended, normal bowel sounds - Integumentary Integumentary: Present: clear, warm - Musculoskeletal Musculoskeletal: strength equal bilaterally - Psychiatric Psychiatric: appropriate mood/affect, cooperative - Neurologic Neurologic: moves all extremities Plan Activity: no restrictions Diet: renal Additional Instructions: Advised to have hemodialysis 3 times a week. Advised to see your private MD/acetylene cylinder packing mixer within 1 week. Advised to go to the nearest emergency room on the day of her dialysis to receive dialysis. Advised to comply with medications, diet, dialysis per schedule. If you have worsening symptoms contact MD or go to the nearest emergency room as needed Follow up with: PRIMARY MD [facility] [Primary Care Provider] - 3-5 Days MELVA PARKS MD [Staff Physician] - 7 Days Prescriptions: amLODIPine 10 mg PO DAILY #30 tab hydrALAZINE [Apresoline TAB] 25 mg PO Q8HR #90 tab Famotidine [Pepcid] 10 mg PO BID #60 tablet
== END 2022-03-27 13:29 | disposition home or self-care (01) | DRG 640 ==
LOC: ED 12:53 → 4A 16:18
PROVIDERS: ADMIT Internal Medicine; ATTEND Internal Medicine
PROC: 5A1D70Z Performance of Urinary Filtration, Intermittent, Less than 6 Hours Per Day (ICD-10-PCS; principal; 2022-03-24)
PROC: 30233N1 Transfusion of Nonautologous Red Blood Cells into Peripheral Vein, Percutaneous Approach (ICD-10-PCS; 2022-03-25)
DX: E87.5 Hyperkalemia (principal); J96.01 Acute respiratory failure with hypoxia; N18.6 End stage renal disease; I12.0 Hypertensive chronic kidney disease with stage 5 chronic kidney disease or end stage renal disease; E87.70 Fluid overload, unspecified; E87.2 Acidosis; Z91.15 Patient's noncompliance with renal dialysis; Z99.2 Dependence on renal dialysis; F01.50 Vascular dementia, unspecified severity, without behavioral disturbance, psychotic disturbance, mood disturbance, and anxiety; I67.2 Cerebral atherosclerosis; D63.1 Anemia in chronic kidney disease; Z82.49 Family history of ischemic heart disease and other diseases of the circulatory system
CPT/HCPCS: 36415; 80048; 80053; 80074; 82962; 85014; 85018; 85025; 86850; 86900; 86901; 86920; 94640; 96374; 96375; 99285; G0378; J3490; Q9967; J0610; J0885; J1815; J7040; P9016; P9047

== ENCOUNTER 2022-04-05 13:14 | Emergency (ER) | payer MEDICARE ==
[2022-04-05 13:19] VITALS: BP 190/100
== END 2022-04-05 19:00 | disposition left against medical advice (07) ==
LOC: ED 13:14
DX: R22.40 Localized swelling, mass and lump, unspecified lower limb (principal); Z53.21 Procedure and treatment not carried out due to patient leaving prior to being seen by health care provider